=== PATIENT | male | born 1995 | race African-American/Black ===

== ENCOUNTER 2016-10-19 20:07 | Emergency (ER) | payer OTHER ==
[2016-10-19 22:40] LABS: BASO % 0.5 % (0.0-1.0); EOS # 0.1 K/mm3 (0.0-0.50); EOS % 1.7 % (0.0-3.0); LARGE UNSTAINED CELL # 0.1 K/mm3 (0.0-0.4); LARGE UNSTAINED CELL % 1.5 % (0.0-4.0); LYMPH # 2.2 K/mm3 (1.5-6.5); LYMPH % 26.6 % (24.0-44.0); MEAN CORPUSCULAR HEMOGLOBIN 28.6 pg (27.0-33.0); MEAN CORPUSCULAR HGB CONC 33.6 g/dl (32.0-36.5); MEAN CORPUSCULAR VOLUME 85.1 fl (80.0-96.0); MONO # 0.4 K/mm3 (0.0-0.8); MONO % 4.1 % (0.0-5.0); NEUTROPHILS # 5.5 K/mm3 (1.8-7.7); NEUTROPHILS % 65.6 % (36.0-66.0); PLATELET COUNT, AUTOMATED 233 k/mm3 (150-450); RED CELL DISTRIBUTION WIDTH 12.2 % (11.5-14.5); WHITE BLOOD COUNT 8.4 K/mm3 (4.0-10.0)
[2016-10-19 23:02] LABS: ANION GAP 12 MEQ/L (8-16); BLOOD UREA NITROGEN 15 MG/DL (7-18); CALCIUM LEVEL 9.4 MG/DL (8.5-10.1); CARBON DIOXIDE LEVEL 26 MEQ/L (21-32); CHLORIDE LEVEL 104 MEQ/L (98-107); CREATININE FOR GFR 1.17 MG/DL (0.70-1.30); GLOMERULAR FILTRATION RATE > 60.0 (>60); GLUCOSE, FASTING 99 MG/DL (70-105); POTASSIUM SERUM 3.8 MEQ/L (3.5-5.1); SODIUM LEVEL 142 MEQ/L (136-145)
--- NOTE | 2016-10-19 23:35 | EDDOCDS ---
Physician Documentation [facility] Name: Prabhakar Maki Age: 21 yrs Sex: Male : 1995 Arrival Date: 10/19/2016 Time: 20:07 Bed PR [facility] Disposition: 10/19 23:20 Critical Care: Critical care not applicable. le Disposition: 10/19/16 23:19 Discharged to Home/Self Care. Impression: Other chest pain. - Condition is Stable. - Discharge Instructions: Nonspecific Chest Pain, Pain Without a Known Cause. - Prescriptions for Naprosyn 500 mg Oral Tablet - take 1 tablet by ORAL route 2 times per day take with food; 30 tablet. - Medication Reconciliation, Local Pharmacy Hours form. - [facility]; When: Call to arrange an appointment; Reason: Recheck today's complaints, Continuance of care. - Problem is new. - Symptoms are unchanged. - Notes: Return to the ED for any further concerns Historical: - Allergies: No known drug Allergies; bee allergy; - Home Meds: 1. none - PMHx: Heart Murmur; Sciatica; - PSHx: none; - Social history: Smoking status: Patient states was never smoker of tobacco. No barriers to communication noted, The patient speaks fluent Togolese, Speaks appropriately for age. - Family history: Not pertinent. - : The pt / caregiver states he / she is not on anticoagulants. Home medication list is obtained from the patient. - Exposure Risk Screening:: None identified. Vital Signs: 20:09 BP 145 / 88; Pulse 102; Resp 20 S; Temp 98.5(O); Pulse Ox 99% on R/A; Weight 92.99 kg / gr2 205.01 lbs (R); Height 5 ft. 10 in. (177.80 cm) (R); Pain 6/10; 23:32 BP 134 / 88; Pulse 81; Resp 18; Temp 97.6(TE); Pulse Ox 99% on R/A; Pain 0/10; sls1 20:09 Body Mass Index 29.41 (92.99 kg, 177.80 cm) gr2 MDM: 20:19 ECG WITH READING ER PHYS+CARDIAG ordered. EDMS 20:47 [facility] Payment Agreement was scanned into Point and attached to record. [email or web address] 22:18 Chest, 2 View (pa\E\lat) Ordered. EDMS 22:18 CBC with Diff Ordered. EDMS 22:18 BMP Ordered. EDMS 22:18 D-Dimer Quant Ordered. EDMS 22:38 Financial registration complete. gjb 22:49 CBC with Diff Reviewed. le 23:17 BMP Reviewed. le 23:17 D-Dimer Quant Reviewed. le Signatures: Dispatcher [employer] EDEdgardo Irvin, RN RN Angelina Tong, AUTOMATIC TOE LASTER AUTOMATIC TOE LASTER Mireya Sawyer RN RN sls1 Libby Galob Amy Aguilera, Reg Reg ks16 The chart was reviewed and I authenticate all verbal orders and agree with the evaluation and treatment provided.Attachments: 20:47 [facility] Payment Agreement ks16 MTDD
--- NOTE | 2016-10-19 23:35 | EDDOCDS ---
Nurse's Notes [facility] Name: Prabhakar Maki Age: 21 yrs Sex: Male : 1995 Arrival Date: 10/19/2016 Time: 20:07 Bed PR Private MD: [facility] Diagnosis: Other chest pain Presentation: 10/19 20:11 Red Flag criteria, patient assessed and is suitable to finish the RCE Process. sls1 20:14 Presenting complaint: Patient states: has history of a heart murmur pt states has been cz coughing up brown phlegm and today had body trembling. Aspirin was not taken prior to arrival. Adult Sepsis Screening: The patient does not have new or worsening altered mentation. Patient's respiratory rate is less than 22. Systolic blood pressure is greater than 100. Patient has a qSOFA score of 0- Negative Sepsis Screen. Suicide/Homicide risk assessment- the patient denies having any suicidal and/or homicidal ideations and does not present with any other emotional, behavioral or mental health complaints. 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 Transition of care: patient was not received from another setting of care. 20:14 Acuity: MARK Level 3 cz 20:14 Method Of Arrival: Walkin/Carried/Asstd cz Triage Assessment: 20:16 General: Appears distressed. Pain: Location: chest Pain currently is 6 out of 10 on a cz pain scale. HIV screening NA for this visit Offered previously. Historical: - Allergies: No known drug Allergies; bee allergy; - Home Meds: 1. none - PMHx: Heart Murmur; Sciatica; - PSHx: none; - Social history: Smoking status: Patient states was never smoker of tobacco. No barriers to communication noted, The patient speaks fluent Kyrgyz, Speaks appropriately for age. - Family history: Not pertinent. - : The pt / caregiver states he / she is not on anticoagulants. Home medication list is obtained from the patient. - Exposure Risk Screening:: None identified. Screenin:07 Screening information is obtained from the patient. Fall risk: No risks identified. sls1 Assistance ADL's: requires no assistance with activities of daily living. Abuse/DV Screen: The patient / caregiver reports he/she is: not in a situation that causes fear, pain or injury. Nutritional screening: No deficits noted. Advance Directives: Further advance directive information is declined. home support is adequate. Assessment: 22:07 General: Appears in no apparent distress, Behavior is appropriate for age, cooperative. sls1 Pain: Location: anterior aspect of left upper chest, left nipple and left breast Pain currently is 6 out of 10 on a pain scale. Pain radiates to right arm. Neurological: Level of Consciousness is awake, alert. Cardiovascular: Capillary refill < 3 seconds Heart tones S1 S2 present left chest tender to palpation Chest pain is described as Pain is 6 out of 10 on a pain scale. is located in substernal area radiates to right arm(s) began 4 days ago. Respiratory: Airway is patent Respiratory effort is even, unlabored, Respiratory pattern is regular, symmetrical. Derm: No deficits noted. 23:32 Reassessment: Patient appears in no apparent distress at this time. Patient states sls1 feeling better. Discharge instructions reviewed with pt and SO including medication use and follow up care, verbalizes understanding of all instructions, pt d/c home with SO. Neurological: No deficits noted. Respiratory: No deficits noted. Vital Signs: 20:09 BP 145 / 88; Pulse 102; Resp 20 S; Temp 98.5(O); Pulse Ox 99% on R/A; Weight 92.99 kg gr2 (R); Height 5 ft. 10 in. (177.80 cm) (R); Pain 6/10; 23:32 BP 134 / 88; Pulse 81; Resp 18; Temp 97.6(TE); Pulse Ox 99% on R/A; Pain 0/10; sls1 20:09 Body Mass Index 29.41 (92.99 kg, 177.80 cm) gr2 Vitals: 20:09 Log In Time: October 19, 2016 at 20:09. RN notified that patient meets Red Flag gr2 criteria. ED Course: 20:09 Patient visited by Andrew Aparicio. gr2 20:09 [facility] gr2 20:09 Patient moved to Waiting gr2 20:11 Patient visited by Andrew Aparicio. gr2 20:12 Patient moved to Pre RCE gr2 20:15 Triage Initiated cz 20:17 Patient moved to PR2 / 26 cz 20:27 Patient visited by Suleiman Quinones, EMELYN. mdr 20:27 Patient moved to TR4 mdr 20:27 EKG done. (by ED staff). Reviewed by Naveed Mcadams DO. mdr 20:42 Patient moved to Pre RCE sls1 20:47 [facility] Payment Agreement was scanned into [employer] and attached to record. ks16 22:06 Patient moved to Triage 1 sls1 22:09 Angelina Coburn FNP [facility]. le 22:09 Patient visited by Mireya Damon RN. sls1 22:11 Patient visited by Angelina Coburn FNP. le 22:11 Patient visited by Angelina Coburn FNP. le 22:36 Patient moved to Radiology patrick 22:37 Patient moved to Triage 1 patrick 22:37 Patient moved to TR5 mb9 22:37 CBC with Diff Sent. mb9 22:37 BMP Sent. mb9 22:37 D-Dimer Quant Sent. mb9 23:19 [facility]. le 23:20 Patient moved to PR [facility] 23:32 The patient / caregiver is instructed regarding the plan of care and ED course. sls1 Accompanied by Significant Other, Patient has correct armband on for positive identification. Cardiac monitoring not applicable on this patient. 23:32 No IV's were initiated during this patient's visit. No procedures done that require sls1 assistance. Order Results: Lab Order: CBC with Diff; SPEC'M 10/19/16 22:34 Test: WHITE BLOOD COUNT; Value: 8.4; Range: 4.0-10.0; Units: K/mm3; Status: F Test: RED BLOOD COUNT; Value: 5.21; Range: 4.30-6.10; Units: M/mm3; Status: F Test: HEMOGLOBIN; Value: 14.9; Range: 14.0-18.0; Units: g/dl; Status: F Test: HEMATOCRIT; Value: 44.4; Range: 42.0-52.0; Units: %; Status: F Test: MEAN CORPUSCULAR VOLUME; Value: 85.1; Range: 80.0-96.0; Units: fl; Status: F Test: MEAN CORPUSCULAR HEMOGLOBIN; Value: 28.6; Range: 27.0-33.0; Units: pg; Status: F Test: MEAN CORPUSCULAR HGB CONC; Value: 33.6; Range: 32.0-36.5; Units: g/dl; Status: F Test: RED CELL DISTRIBUTION WIDTH; Value: 12.2; Range: 11.5-14.5; Units: %; Status: F Test: PLATELET COUNT, AUTOMATED; Value: 233; Range: 150-450; Units: k/mm3; Status: F Test: NEUTROPHILS %; Value: 65.6; Range: 36.0-66.0; Units: %; Status: F Test: LYMPH %; Value: 26.6; Range: 24.0-44.0; Units: %; Status: F Test: MONO %; Value: 4.1; Range: 0.0-5.0; Units: %; Status: F Test: EOS %; Value: 1.7; Range: 0.0-3.0; Units: %; Status: F Test: BASO %; Value: 0.5; Range: 0.0-1.0; Units: %; Status: F Test: LARGE UNSTAINED CELL %; Value: 1.5; Range: 0.0-4.0; Units: %; Status: F Test: NEUTROPHILS #; Value: 5.5; Range: 1.8-7.7; Units: K/mm3; Status: F Test: LYMPH #; Value: 2.2; Range: 1.5-6.5; Units: K/mm3; Status: F Test: MONO #; Value: 0.4; Range: 0.0-0.8; Units: K/mm3; Status: F Test: EOS #; Value: 0.1; Range: 0.0-0.50; Units: K/mm3; Status: F Test: BASO #; Value: 0.0; Range: 0.0-0.2; Units: K/mm3; Status: F Test: LARGE UNSTAINED CELL #; Value: 0.1; Range: 0.0-0.4; Units: K/mm3; Status: F Lab Order: [facility]; SPEC'M 10/19/16 22:34 Test: GLUCOSE, FASTING; Value: 99; Range: 70-105; Units: MG/DL; Status: F Test: BLOOD UREA NITROGEN; Value: 15; Range: 7-18; Units: MG/DL; Status: F Test: CREATININE FOR GFR; Value: 1.17; Range: 0.70-1.30; Units: MG/DL; Status: F Test: GLOMERULAR FILTRATION RATE; Value: > 60.0; Range: >60; Status: F Test: SODIUM LEVEL; Value: 142; Range: 136-145; Units: MEQ/L; Status: F Test: POTASSIUM SERUM; Value: 3.8; Range: 3.5-5.1; Units: MEQ/L; Status: F Test: CHLORIDE LEVEL; Value: 104; Range: 98-107; Units: MEQ/L; Status: F Test: CARBON DIOXIDE LEVEL; Value: 26; Range: 21-32; Units: MEQ/L; Status: F Test: ANION GAP; Value: 12; Range: 8-16; Units: MEQ/L; Status: F Test: CALCIUM LEVEL; Value: 9.4; Range: 8.5-10.1; Units: MG/DL; Status: F Test Note: ; Units are mL/min/1.73 m2 Chronic Kidney Disease Staging per NKF: Stage I & II GFR >=60 Normal to Mildly Decreased Stage III GFR 30-59 Moderately Decreased Stage IV GFR 15-29 Severely Decreased Stage V GFR <15 Very Little GFR Left ESRD GFR <15 on CREDIT RISK MODELER Lab Order: D-Dimer Quant; SPEC'M 10/19/16 22:34 Test: D-DIMER QUANT; Value: < 270.0; Range: <500; Units: ng/ml; Status: F Outcome: 23:19 Discharge ordered by Provider. le 23:32 Discharge Assessment: Patient awake, alert and oriented x 3. No cognitive and/or [facility] functional deficits noted. Patient verbalized understanding of disposition instructions. patient administered narcotics - no. The following High Risk Discharge criteria are identified: None. Discharged to home ambulatory. Condition: stable. Discharge instructions given to patient, Instructed on discharge instructions, follow up and referral plans. medication usage, Demonstrated understanding of instructions, medications, Pt was receptive of discharge instructions/ teaching. Prescriptions given X 1. No special radiology studies were completed. Property :Personal belongings accompany Pt. 23:34 Patient left the ED. sls1 Signatures: Edgardo Dukes RN RN cz Bartlett, Floyd fab Westcott, Lisa, BLOCK MAKING MACHINE OPERATOR BLOCK MAKING MACHINE OPERATOR Mireya Sawyer RN RN sls1 Andrew Aparicio2 Milton Ya,JAKY RN mb9 Suleiman Quinones, MIDDLEWARE ADMINISTRATOR MIDDLEWARE ADMINISTRATOR mdr Amy Aguilera, Reg Reg ks16 ROMED
--- NOTE | 2016-10-20 07:06 | REP ---
Clinical: Chest pain . Comparison: None . Technique: PA and lateral. Findings: The mediastinum and cardiac silhouette are normal. The lung curry are clear and without acute consolidation, effusion, or pneumothorax. The skeletal structures are intact and normal. Impression: 1. No acute cardiopulmonary process. Signed by Manas Sanchez MD 10/20/2016 06:58 A
--- NOTE | 2016-10-20 08:05 | ECGEPIP ---
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
--- NOTE | 2016-10-22 00:35 | EDDOCDS ---
Physician Documentation [facility] Name: Prabhakar Maki Age: 21 yrs Sex: Male : 1995 Arrival Date: 10/19/2016 Time: 20:07 Bed PR [facility] Disposition: 10/19 23:20 Critical Care: Critical care not applicable. le Disposition: 10/19/16 23:19 Discharged to Home/Self Care. Impression: Other chest pain. - Condition is Stable. - Discharge Instructions: Nonspecific Chest Pain, Pain Without a Known Cause. - Prescriptions for Naprosyn 500 mg Oral Tablet - take 1 tablet by ORAL route 2 times per day take with food; 30 tablet. - Medication Reconciliation, Local Pharmacy Hours form. - [facility]; When: Call to arrange an appointment; Reason: Recheck today's complaints, Continuance of care. - Problem is new. - Symptoms are unchanged. - Notes: Return to the ED for any further concerns Historical: - Allergies: No known drug Allergies; bee allergy; - Home Meds: 1. none - PMHx: Heart Murmur; Sciatica; - PSHx: none; - Social history: Smoking status: Patient states was never smoker of tobacco. No barriers to communication noted, The patient speaks fluent Lithuanian, Speaks appropriately for age. - Family history: Not pertinent. - : The pt / caregiver states he / she is not on anticoagulants. Home medication list is obtained from the patient. - Exposure Risk Screening:: None identified. Vital Signs: 20:09 BP 145 / 88; Pulse 102; Resp 20 S; Temp 98.5(O); Pulse Ox 99% on R/A; Weight 92.99 kg / gr2 205.01 lbs (R); Height 5 ft. 10 in. (177.80 cm) (R); Pain 6/10; 23:32 BP 134 / 88; Pulse 81; Resp 18; Temp 97.6(TE); Pulse Ox 99% on R/A; Pain 0/10; sls1 20:09 Body Mass Index 29.41 (92.99 kg, 177.80 cm) gr2 MDM: 20:19 ECG WITH READING ER PHYS+CARDIAG ordered. EDMS 20:47 [facility] Payment Agreement was scanned into [employer] and attached to record. [email or web address] 22:18 Chest, 2 View (pa\E\lat) Ordered. EDMS 22:18 CBC with Diff Ordered. EDMS 22:18 BMP Ordered. EDMS 22:18 D-Dimer Quant Ordered. EDMS 22:38 Financial registration complete. gjb 22:49 CBC with Diff Reviewed. le 23:17 BMP Reviewed. le 23:17 D-Dimer Quant Reviewed. le 10/20 10:08 T-Sheet-- Draft Copy was scanned into [employer] and attached to record. gb 10:09 ECG/EKG was scanned into [employer] and attached to record. gb Signatures: Dispatcher [employer] EDMS Edgardo Dukes, RN RN Smita Carpio, Reg Reg gb Angelina Coburn, BALLET PROFESSOR BALLET PROFESSOR Mireya Sawyer RN RN sls1 Libby Galo gjb Amy Aguilera, Reg Reg ks16 The chart was reviewed and I authenticate all verbal orders and agree with the evaluation and treatment provided.Attachments: 10/19 20:47 [facility] [place] Payment Agreement [email or web address] 10/20 10:08 T-Sheet-- Draft Copy gb 10:09 ECG/EKG gb Chart Complete MTDD
--- NOTE | 2016-10-22 00:36 | EDDOCDS ---
Physician Documentation [facility] Name: Prabhakar Maki Age: 21 yrs Sex: Male : 1995 Arrival Date: 10/19/2016 Time: 20:07 Bed PR [facility] Disposition: 10/19 23:20 Critical Care: Critical care not applicable. le Disposition: 10/19/16 23:19 Discharged to Home/Self Care. Impression: Other chest pain. - Condition is Stable. - Discharge Instructions: Nonspecific Chest Pain, Pain Without a Known Cause. - Prescriptions for Naprosyn 500 mg Oral Tablet - take 1 tablet by ORAL route 2 times per day take with food; 30 tablet. - Medication Reconciliation, Local Pharmacy Hours form. - [facility]; When: Call to arrange an appointment; Reason: Recheck today's complaints, Continuance of care. - Problem is new. - Symptoms are unchanged. - Notes: Return to the ED for any further concerns Historical: - Allergies: No known drug Allergies; bee allergy; - Home Meds: 1. none - PMHx: Heart Murmur; Sciatica; - PSHx: none; - Social history: Smoking status: Patient states was never smoker of tobacco. No barriers to communication noted, The patient speaks fluent Irish, Speaks appropriately for age. - Family history: Not pertinent. - : The pt / caregiver states he / she is not on anticoagulants. Home medication list is obtained from the patient. - Exposure Risk Screening:: None identified. Vital Signs: 20:09 BP 145 / 88; Pulse 102; Resp 20 S; Temp 98.5(O); Pulse Ox 99% on R/A; Weight 92.99 kg / gr2 205.01 lbs (R); Height 5 ft. 10 in. (177.80 cm) (R); Pain 6/10; 23:32 BP 134 / 88; Pulse 81; Resp 18; Temp 97.6(TE); Pulse Ox 99% on R/A; Pain 0/10; sls1 20:09 Body Mass Index 29.41 (92.99 kg, 177.80 cm) gr2 MDM: 20:19 ECG WITH READING ER PHYS+CARDIAG ordered. EDMS 20:47 [facility] Payment Agreement was scanned into [employer] and attached to record. [email or web address] 22:18 Chest, 2 View (pa\E\lat) Ordered. EDMS 22:18 CBC with Diff Ordered. EDMS 22:18 BMP Ordered. EDMS 22:18 D-Dimer Quant Ordered. EDMS 22:38 Financial registration complete. gjb 22:49 CBC with Diff Reviewed. le 23:17 BMP Reviewed. le 23:17 D-Dimer Quant Reviewed. le 10/20 10:08 T-Sheet-- Draft Copy was scanned into [employer] and attached to record. gb 10:09 ECG/EKG was scanned into [employer] and attached to record. gb Signatures: Dispatcher [employer] EDMS Edgardo Dukes, RN RN Smita Carpio, Reg Reg gb Angelina Coburn, ELECTRIC MOTOR WINDERS ASSEMBLER ELECTRIC MOTOR WINDERS ASSEMBLER Mireya Sawyer RN RN sls1 Libby Galo gjb Aym Aguilera, Reg Reg ks16 The chart was reviewed and I authenticate all verbal orders and agree with the evaluation and treatment provided.Attachments: 10/19 20:47 [facility] [place] Payment Agreement [email or web address] 10/20 10:08 T-Sheet-- Draft Copy gb 10:09 ECG/EKG gb Chart Complete MTDD
--- NOTE | 2016-10-22 00:36 | EDDOCDS ---
Nurse's Notes [facility] Name: Regis Maki Age: 21 yrs Sex: Male : 1995 Arrival Date: 10/19/2016 Time: 20:07 Bed PR Private MD: [facility]ESFA[facility] Diagnosis: Other chest pain Presentation: 10/19 20:11 Red Flag criteria, patient assessed and is suitable to finish the RCE Process. sls1 20:14 Presenting complaint: Patient states: has history of a heart murmur pt states has been cz coughing up brown phlegm and today had body trembling. Aspirin was not taken prior to arrival. Adult Sepsis Screening: The patient does not have new or worsening altered mentation. Patient's respiratory rate is less than 22. Systolic blood pressure is greater than 100. Patient has a qSOFA score of 0- Negative Sepsis Screen. Suicide/Homicide risk assessment- the patient denies having any suicidal and/or homicidal ideations and does not present with any other emotional, behavioral or mental health complaints. 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 Transition of care: patient was not received from another setting of care. 20:14 Acuity: MARK Level 3 cz 20:14 Method Of Arrival: Walkin/Carried/Asstd cz Triage Assessment: 20:16 General: Appears distressed. Pain: Location: chest Pain currently is 6 out of 10 on a cz pain scale. HIV screening NA for this visit Offered previously. Historical: - Allergies: No known drug Allergies; bee allergy; - Home Meds: 1. none - PMHx: Heart Murmur; Sciatica; - PSHx: none; - Social history: Smoking status: Patient states was never smoker of tobacco. No barriers to communication noted, The patient speaks fluent Australian, Speaks appropriately for age. - Family history: Not pertinent. - : The pt / caregiver states he / she is not on anticoagulants. Home medication list is obtained from the patient. - Exposure Risk Screening:: None identified. Screenin:07 Screening information is obtained from the patient. Fall risk: No risks identified. sls1 Assistance ADL's: requires no assistance with activities of daily living. Abuse/DV Screen: The patient / caregiver reports he/she is: not in a situation that causes fear, pain or injury. Nutritional screening: No deficits noted. Advance Directives: Further advance directive information is declined. home support is adequate. Assessment: 22:07 General: Appears in no apparent distress, Behavior is appropriate for age, cooperative. sls1 Pain: Location: anterior aspect of left upper chest, left nipple and left breast Pain currently is 6 out of 10 on a pain scale. Pain radiates to right arm. Neurological: Level of Consciousness is awake, alert. Cardiovascular: Capillary refill < 3 seconds Heart tones S1 S2 present left chest tender to palpation Chest pain is described as Pain is 6 out of 10 on a pain scale. is located in substernal area radiates to right arm(s) began 4 days ago. Respiratory: Airway is patent Respiratory effort is even, unlabored, Respiratory pattern is regular, symmetrical. Derm: No deficits noted. 23:32 Reassessment: Patient appears in no apparent distress at this time. Patient states sls1 feeling better. Discharge instructions reviewed with pt and SO including medication use and follow up care, verbalizes understanding of all instructions, pt d/c home with SO. Neurological: No deficits noted. Respiratory: No deficits noted. Vital Signs: 20:09 BP 145 / 88; Pulse 102; Resp 20 S; Temp 98.5(O); Pulse Ox 99% on R/A; Weight 92.99 kg gr2 (R); Height 5 ft. 10 in. (177.80 cm) (R); Pain 6/10; 23:32 BP 134 / 88; Pulse 81; Resp 18; Temp 97.6(TE); Pulse Ox 99% on R/A; Pain 0/10; sls1 20:09 Body Mass Index 29.41 (92.99 kg, 177.80 cm) gr2 Vitals: 20:09 Log In Time: October 19, 2016 at 20:09. RN notified that patient meets Red Flag gr2 criteria. ED Course: 20:09 Patient visited by Andrew Aparicio. gr2 20:09 [facility]. gr2 20:09 Patient moved to Waiting gr2 20:11 Patient visited by Andrew Aparicio. gr2 20:12 Patient moved to Pre RCE gr2 20:15 Triage Initiated cz 20:17 Patient moved to PR2 / 26 cz 20:27 Patient visited by Suleiman Quinones, EMELYN. mdr 20:27 Patient moved to TR4 mdr 20:27 EKG done. (by ED staff). Reviewed by Vicki Mcadams DO. mdr 20:42 Patient moved to Pre RCE sls1 20:47 [facility] [place] Payment Agreement was scanned into [employer] and attached to record. ks16 22:06 Patient moved to Triage 1 sls1 22:09 Angelina Coburn FNP is PHCP. le 22:09 Patient visited by Mireya Damon, JAKY. sls1 22:11 Patient visited by Angelina Coburn FNP. le 22:11 Patient visited by Angelina Coburn FNP. le 22:36 Patient moved to Radiology patrick 22:37 Patient moved to Triage 1 patrick 22:37 Patient moved to TR5 mb9 22:37 CBC with Diff Sent. mb9 22:37 BMP Sent. mb9 22:37 D-Dimer Quant Sent. mb9 23:19 [facility] Referral Physician. le 23:20 Patient moved to PR / sls1 23:32 The patient / caregiver is instructed regarding the plan of care and ED course. sls1 Accompanied by Significant Other, Patient has correct armband on for positive identification. Cardiac monitoring not applicable on this patient. 23:32 No IV's were initiated during this patient's visit. No procedures done that require sls1 assistance. 10/20 07:41 Chest, 2 View (pa\E\lat) Returned. EDMS 08:22 EKG-ADULT Returned. EDMS 10:08 T-Sheet-- Draft Copy was scanned into [employer] and attached to record. gb 10:09 ECG/EKG was scanned into [employer] and attached to record. gb Order Results: Lab Order: CBC with Diff; SPEC'M 10/19/16 22:34 Test: WHITE BLOOD COUNT; Value: 8.4; Range: 4.0-10.0; Units: K/mm3; Status: F Test: RED BLOOD COUNT; Value: 5.21; Range: 4.30-6.10; Units: M/mm3; Status: F Test: HEMOGLOBIN; Value: 14.9; Range: 14.0-18.0; Units: g/dl; Status: F Test: HEMATOCRIT; Value: 44.4; Range: 42.0-52.0; Units: %; Status: F Test: MEAN CORPUSCULAR VOLUME; Value: 85.1; Range: 80.0-96.0; Units: fl; Status: F Test: MEAN CORPUSCULAR HEMOGLOBIN; Value: 28.6; Range: 27.0-33.0; Units: pg; Status: F Test: MEAN CORPUSCULAR HGB CONC; Value: 33.6; Range: 32.0-36.5; Units: g/dl; Status: F Test: RED CELL DISTRIBUTION WIDTH; Value: 12.2; Range: 11.5-14.5; Units: %; Status: F Test: PLATELET COUNT, AUTOMATED; Value: 233; Range: 150-450; Units: k/mm3; Status: F Test: NEUTROPHILS %; Value: 65.6; Range: 36.0-66.0; Units: %; Status: F Test: LYMPH %; Value: 26.6; Range: 24.0-44.0; Units: %; Status: F Test: MONO %; Value: 4.1; Range: 0.0-5.0; Units: %; Status: F Test: EOS %; Value: 1.7; Range: 0.0-3.0; Units: %; Status: F Test: BASO %; Value: 0.5; Range: 0.0-1.0; Units: %; Status: F Test: LARGE UNSTAINED CELL %; Value: 1.5; Range: 0.0-4.0; Units: %; Status: F Test: NEUTROPHILS #; Value: 5.5; Range: 1.8-7.7; Units: K/mm3; Status: F Test: LYMPH #; Value: 2.2; Range: 1.5-6.5; Units: K/mm3; Status: F Test: MONO #; Value: 0.4; Range: 0.0-0.8; Units: K/mm3; Status: F Test: EOS #; Value: 0.1; Range: 0.0-0.50; Units: K/mm3; Status: F Test: BASO #; Value: 0.0; Range: 0.0-0.2; Units: K/mm3; Status: F Test: LARGE UNSTAINED CELL #; Value: 0.1; Range: 0.0-0.4; Units: K/mm3; Status: F Lab Order: BMP; SPEC'M 10/19/16 22:34 Test: GLUCOSE, FASTING; Value: 99; Range: 70-105; Units: MG/DL; Status: F Test: BLOOD UREA NITROGEN; Value: 15; Range: 7-18; Units: MG/DL; Status: F Test: CREATININE FOR GFR; Value: 1.17; Range: 0.70-1.30; Units: MG/DL; Status: F Test: GLOMERULAR FILTRATION RATE; Value: > 60.0; Range: >60; Status: F Test: SODIUM LEVEL; Value: 142; Range: 136-145; Units: MEQ/L; Status: F Test: POTASSIUM SERUM; Value: 3.8; Range: 3.5-5.1; Units: MEQ/L; Status: F Test: CHLORIDE LEVEL; Value: 104; Range: 98-107; Units: MEQ/L; Status: F Test: CARBON DIOXIDE LEVEL; Value: 26; Range: 21-32; Units: MEQ/L; Status: F Test: ANION GAP; Value: 12; Range: 8-16; Units: MEQ/L; Status: F Test: CALCIUM LEVEL; Value: 9.4; Range: 8.5-10.1; Units: MG/DL; Status: F Test Note: ; Units are mL/min/1.73 m2 Chronic Kidney Disease Staging per NKF: Stage I & II GFR >=60 Normal to Mildly Decreased Stage III GFR 30-59 Moderately Decreased Stage IV GFR 15-29 Severely Decreased Stage V GFR <15 Very Little GFR Left ESRD GFR <15 on CREDIT AND COLLECTIONS ANALYST Lab Order: D-Dimer Quant; SPEC'M 10/19/16 22:34 Test: D-DIMER QUANT; Value: < 270.0; Range: <500; Units: ng/ml; Status: F Radiology Order: EKG-ADULT Test: EKG-ADULT REASON FOR EXAMINATION: Chest Pain; Stationary ECG Study; [facility] - ED; ; Test Date: 2016-10-19; Pat Name: REGIS MAKI Department:; Room: -; 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; : 1995 Requested By: VICKI Bell; Order Number: [id number] Ambrose MD: Kiara Barlow; Measurements; Intervals [place]; Rate: 70 P: 61; IL: 152 QRS: 36; QRSD: 101 T: 28; QT: 371; QTc: 401; Interpretive Statements; SINUS RHYTHM; POSSIBLE RIGHT VENTRICULAR CONDUCTION DELAY; NO PRIOR FOR COMPARISON; Electronically Signed On 10-20-2016 8:05:23 EST by Kiara Barlow; Radiology Order: Chest, 2 View (pa\E\lat) Test: Chest, 2 View (pa\E\lat) REASON FOR EXAMINATION: Chest Pain; Clinical: Chest pain .; ; Comparison: None .; ; Technique: PA and lateral.; ; Findings:; The mediastinum and cardiac silhouette are normal. The lung curry are clear and; without acute consolidation, effusion, or pneumothorax. The skeletal structures; are intact and normal.; ; Impression:; 1. No acute cardiopulmonary process.; ; ; Signed by; Manas Sanchez MD 10/20/2016 06:58 A; Outcome: 10/19 23:19 Discharge ordered by Provider. le 23:32 Discharge Assessment: Patient awake, alert and oriented x 3. No cognitive and/or sls1 functional deficits noted. Patient verbalized understanding of disposition instructions. patient administered narcotics - no. The following High Risk Discharge criteria are identified: None. Discharged to home ambulatory. Condition: stable. Discharge instructions given to patient, Instructed on discharge instructions, follow up and referral plans. medication usage, Demonstrated understanding of instructions, medications, Pt was receptive of discharge instructions/ teaching. Prescriptions given X 1. No special radiology studies were completed. Property :Personal belongings accompany Pt. 23:34 Patient left the ED. sls1 Signatures: Dispatcher [employer] EDMS Edgardo uDkes RN RN Arnie Finnegan Gloria, Reg Reg gb Angelina Coburn, BUSINESS PROCESS COORDINATOR BUSINESS PROCESS COORDINATOR Mireya Sawyer RN RN sls1 Andrew Aparicio gr2 Milton Ya RN RN Suleiman Lowry, EMELYN FINISH MACHINE TENDER Amy Silveira, Reg Reg ks16 Chart Complete MTDD
== END 2016-10-19 23:34 | disposition home or self-care (01) ==
LOC: M ED 20:07
DX: R05 Cough (principal); R01.1 Cardiac murmur, unspecified; M54.30 Sciatica, unspecified side; Z91.030 Bee allergy status

== ENCOUNTER 2016-10-21 13:05 | Emergency (ER) | payer OTHER ==
[2016-10-21 13:57] LABS: MEAN CORPUSCULAR HEMOGLOBIN 28.8 pg (27.0-33.0); MEAN CORPUSCULAR VOLUME 84.6 fl (80.0-96.0); RED CELL DISTRIBUTION WIDTH 12.2 % (11.5-14.5); WHITE BLOOD COUNT 6.8 K/mm3 (4.0-10.0)
--- NOTE | 2016-10-21 14:03 | REP ---
CT Head without contrast HISTORY: Trauma COMPARISON: None There is no intraparenchymal hemorrhage, acute infarct, mass or midline shift. The ventricular system is normal in appearance. There is no extra cerebral collection. There is no fracture. The visualized sinuses are clear. IMPRESSION: There is no intracranial lesion. Signed by Arnaldo Vyas MD 10/21/2016 01:54 P
--- NOTE | 2016-10-21 14:07 | REP ---
CT cervical spine without contrast HISTORY: Trauma COMPARISON: None There is no acute fracture or subluxation. There is no disc bulge or herniation. The spinal canal and neural foramina are patent. The intervertebral discs and vertebral bodies are normal in height. IMPRESSION: There is no acute fracture or subluxation. Signed by Arnaldo Vyas MD 10/21/2016 01:59 P
[2016-10-21] MEDS ORDERED: KETOROLAC 30 MG/ML VIAL (J1885) As Ordered ONE (14:10)
[2016-10-21 14:13] LABS: ALBUMIN 4.4 GM/DL (3.2-5.2); ALBUMIN/GLOBULIN RATIO 1.13 (1.00-1.93); ALKALINE PHOSPHATASE 72 U/L (45-117); ALT/SGPT 28 U/L (12-78); ANION GAP 9 MEQ/L (8-16); AST/SGOT 17 U/L (15-37); BILIRUBIN,DIRECT 0.2 MG/DL (0.0-0.2); BILIRUBIN,TOTAL 1.1 MG/DL (0.2-1.0); BLOOD UREA NITROGEN 16 MG/DL (7-18); CALCIUM LEVEL 9.3 MG/DL (8.5-10.1); CARBON DIOXIDE LEVEL 28 MEQ/L (21-32); CHLORIDE LEVEL 105 MEQ/L (98-107); CREATININE FOR GFR 1.28 MG/DL (0.70-1.30); GLOMERULAR FILTRATION RATE > 60.0 (>60); GLUCOSE, FASTING 86 MG/DL (70-105); POTASSIUM SERUM 3.7 MEQ/L (3.5-5.1); SODIUM LEVEL 142 MEQ/L (136-145); TOTAL PROTEIN 8.3 GM/DL (6.4-8.2)
--- NOTE | 2016-10-21 15:40 | REP ---
T-spine series: Three views. History: Trauma. Findings: Thoracic vertebral body heights are preserved and alignment is normal. Pedicles and posterior elements are intact. No paravertebral soft-tissue mass or edema is seen. No fracture or collapse seen. Impression: Negative thoracic spine series. Signed by Reji Ybarra MD 10/21/2016 04:20 P
--- NOTE | 2016-10-21 15:41 | REP ---
Lumbar spine series: Five views. History: Trauma. Findings: Five views of the lumbar spine show preserved vertebral body heights and normal alignment. No fracture or collapse is seen. Pedicles and posterior elements are intact. Sacrum and SI joints are normal in appearance. Multiple air-filled but nondilated small bowel loops are seen in the central abdomen. Psoas margins are obscured. Impression: No traumatic bony abnormality seen. Signed by Reji Ybarra MD 10/21/2016 04:20 P
[2016-10-21 16:08] LABS: AMPHETAMINES LEVEL URINE NEGATIVE (NEGATIVE); BENZODIAZEPINES URINE NEGATIVE (NEGATIVE); COCAINE METABOLITE URINE NEGATIVE (NEGATIVE); CONTROL LINE INT CTR LINE PRESENT; METHADONE URINE NEGATIVE (NEGATIVE); OPIATES URINE NEGATIVE (NEGATIVE); TRICYCLIC ANTIDEPRESS URINE NEGATIVE (NEGATIVE)
[2016-10-21] MEDS ORDERED: NORCO, ANEXSIA 5/325MG TABLET (HYDROcodone/ACETAMINOPHEN) As Ordered ONE (16:35)
--- NOTE | 2016-10-21 18:50 | EDDOCDS ---
Nurse's Notes [facility] Name: Prabhakar Maki Age: 21 yrs Sex: Male : 1995 Arrival Date: 10/21/2016 Time: 13:05 Bed 3 Private MD: Diagnosis: Injury of muscle, fascia and tendon at neck level;Low back pain-and thoracic back pain S/P fall Presentation: 10/21 13:08 Presenting complaint: EMS states: patient fell down about 8 steps. Patient refusing to kcs talk but will answer questions by blinking 1 for yes and 2 blinks for no. Unwitnessed fall. Suicide/Homicide risk assessment- the patient denies having any suicidal and/or homicidal ideations and does not present with any other emotional, behavioral or mental health complaints. Status: Unknown if room service bellhop or dependent. Transition of care: patient was not received from another setting of care. Care prior to arrival: See EMS report. C collar in place. Placed on backboard. 13:08 Method Of Arrival: Ambulance kcs 13:23 Adult Sepsis Screening: Patient's respiratory rate is less than 22. Systolic blood ms18 pressure is greater than 100. Patient has a qSOFA score of 0- Negative Sepsis Screen. 13:23 Acuity: MARK Level 3 ms18 Triage Assessment: 13:08 General: Appears comfortable, well developed, well nourished, well groomed, Behavior is kcs uncooperative. The patient is triaged at the bedside. See Assessment in Nurses Notes section of ED record. Neurological: Level of Consciousness is awake, alert. Respiratory: Airway is patent Respiratory effort is even, unlabored, Respiratory pattern is regular. Derm: Skin is intact, is healthy with good turgor, Skin is dry, Skin is black. 13:14 Pain: Location: right arm. HIV screening NA for this visit Offered previously. kcs Historical: - Allergies: bee allergy; - Home Meds: 1. none - PMHx: Heart Murmur; Sciatica; - PSHx: none; - Social history: refuses to communicate verbally. Smoking status: . - Family history: Not pertinent. - : The pt / caregiver states he / she is not on anticoagulants. Home medication list is obtained from [employer] import data. - Exposure Risk Screening:: None identified. Screenin:34 Screening information is obtained from the patient. Fall risk: At risk due to injury. ms18 Assistance ADL's: requires no assistance with activities of daily living. Nutritional screening: No deficits noted. Advance Directives: There is no living will. 18:49 Abuse/DV Screen: The patient / caregiver reports he/she is: not in a situation that rs3 causes fear, pain or injury. home support is adequate. Assessment: 13:17 General: patient log rolled maintaining neck stabilization - back examined by MD and kcs backboard removed - [place] collar remains intact.. 13:34 General: Appears in no apparent distress, uncomfortable, Behavior is cooperative, ms18 inappropriate for age, Pt not speaking at this time. Pt is communicating by blinking once for yes and two for no. Pain: Location: right arm. Neurological: Level of Consciousness is awake, alert, obeys commands. Cardiovascular: Rhythm is sinus rhythm. Respiratory: Airway is patent Respiratory effort is even, unlabored. Derm: Skin is normal, pt has some superficial scratches to the inside of his L forearm. There are several lateral georges that appear to be self inflicted. Pt still won't speak to staff. Musculoskeletal: Circulation, motion, and sensation intact Capillary refill < 3 seconds No deformity noted. 14:05 Reassessment: out to desk and states patient is asking for something for pain.. kcs 14:06 General: Langlade collar removed by Dr. Montgomery. . kcs 14:19 Reassessment: blankets applied - patient noted to be shaking.. kcs 15:30 General: Appears in no apparent distress, Behavior is appropriate for age, cooperative, rs3 resting comfortable. family at bedside. no apparent distress. vitals stable. reports of back pain 07/12. attending provider aware. ordered med given. 16:30 General: Appears in no apparent distress, Behavior is appropriate for age, patient rs3 reports of back pain. assisted with walking. slow unsteady limited by pain. attending provider made aware. . 17:39 General: Appears in no apparent distress, Behavior is appropriate for age, cooperative, rs3 resting comfortable. family at bedside. reports of back pain. will continue to monitor. . 18:25 General: Appears in no apparent distress, resting comfortable. sleeping. vital stable. rs3 no distress noted. . Social Work Consult: 16:40 Social Work Note: Pt presented for c/o fall on stairs today. States he feels tired and ca sleepy. Initially refusing to speak with anyone except , who is at bedside. Pt does have hx of anxiety and is seen bi-weekly at [facility], [place]. Pt is cooperative, A&O x 4. States he has no concerns. Denies any SI or HI. Per , no concerns. Pt wishes to be discharged to home. Vital Signs: 13:15 BP 140 / 92; Pulse 85; Resp 18; Temp 99.4(TE); Pulse Ox 99% on R/A; kcs 13:15 BP 140 / 92 (auto/); kcs 13:17 Pulse 83 MON; Pulse Ox 99% ; kcs 13:30 BP 145 / 95 (auto/); kcs 13:30 Pulse 97 MON; Pulse Ox 98% ; kcs 13:45 BP 135 / 73 (auto/); kcs 13:46 Pulse 75 MON; Pulse Ox 100% ; kcs 14:00 BP 144 / 76 (auto/); kcs 14:00 Pulse 78 MON; Pulse Ox 99% ; kcs 15:56 Pulse 74 MON; Pulse Ox 98% ; rs3 15:57 BP 131 / 84 (auto/); rs3 16:00 BP 134 / 80 (auto/); rs3 16:00 Pulse 74 MON; Pulse Ox 98% ; rs3 16:08 Weight 92.99 kg; jlf 16:15 BP 138 / 82 (auto/); rs3 16:15 Pulse 73 MON; Pulse Ox 99% ; rs3 16:30 BP 129 / 76 (auto/); rs3 16:30 Pulse 72 MON; Pulse Ox 99% ; rs3 16:45 BP 159 / 70 (auto/); rs3 16:45 Pulse 79 MON; Pulse Ox 99% ; rs3 16:57 Pulse 82 MON; Pulse Ox 96% ; rs3 17:03 BP 175 / 86 (auto/); rs3 17:05 BP 175 / 86; Pulse 87; Resp 20; Pulse Ox 97% ; Pain 8/10; jlf 17:15 BP 183 / 86 (auto/); rs3 17:15 Pulse 78 MON; Pulse Ox 98% ; rs3 17:30 BP 180 / 90 (auto/); rs3 17:30 Pulse 75 MON; Pulse Ox 98% ; rs3 18:00 BP 162 / 83 (auto/); rs3 18:00 Pulse 85 MON; Pulse Ox 97% ; rs3 18:15 BP 173 / 93 (auto/); rs3 18:15 Pulse 84 MON; Pulse Ox 99% ; rs3 18:30 BP 168 / 91 (auto/); rs3 18:30 BP 168 / 91; Pulse 74 MON; Resp 18; Temp 98(T); Pulse Ox 98% on R/A; rs3 Vitals: 13:15 Log In Time N/A - ambulance arrival. kcs ED Course: 13:07 Patient visited by Anaya Ferrer, Hand I Tube Bender. deg 13:07 Patient moved to Waiting deg 13:08 Grtea Chavez RN is Primary Nurse. kcs 13:08 Patient moved to 3 kcs 13:14 Kiara Barlow MD is Attending Physician. sd1 13:14 Patient visited by Kiara Barlow MD. sd1 13:23 Patient visited by Gunjan Chavez RN. ms18 13:24 Triage Initiated ms18 13:30 Inserted saline lock: 18 gauge in left antecubital area and blood collected. The ms18 patient tolerated the procedure well. 13:34 The patient / caregiver is instructed regarding the plan of care and ED course. ms18 Accompanied by Family Member, Patient has correct armband on for positive identification. Placed in gown. Bed in low position. Call light in reach. Side rails up X2. cartridge assembling machine adjuster on. Pulse ox on. NIBP on. Property :Personal belongings accompany Pt. 14:17 Patient visited by Gunjan Chavez RN. ms18 14:33 CT Head Without Contrast Returned. EDMS 14:33 CT Spine,Cervical W/o Contrast Returned. EDMS 14:53 Patient visited by Negro Dennis PCA. jlf 15:17 [facility] Payment Agreement was scanned into [employer] and attached to record. jp5 15:39 Patient visited by Nia Mcmanus RN. rs3 15:43 Nia Mcmanus RN is Primary Nurse. rs3 16:09 Patient visited by Negro Dennis PCA. jlf 16:20 Spine, Thoracic 3 Views Returned. EDMS 16:20 Spine. Lumbosacral, Complete Returned. EDMS 16:29 EKG done. (by ED staff). Reviewed by Kiara Barlow MD. rn1 17:05 Patient visited by Negro Dennis PCA. jlf 17:06 Notified attending ED physician of ambulated pt per order, pt did not tolerate jlf well. Pt needed two assist, and would not keep eyes open, he kept bending over saying he was in pain. Pt took four steps from the stretcher and couldn't tolerate anymore. Dr. Montgomery aware. 17:35 Patient visited by Negro Dennis PCA. jlf 18:10 Patient visited by Nia Mcmanus RN. rs3 18:28 Kortney Villanueva [facility] is Referral Physician. sd1 18:49 Discontinued lock bleeding controlled, pressure dressing applied, No redness/swelling rs3 at site. No procedures done that require assistance. Administered Medications: 14:15 Drug: ketorolac 30 mg [ketorolac 30 mg/mL (1 mL) injection solution (1 mL)] {Note: SL kcs with good blood return and flushed easily.} Route: IVP; Site: left antecubital; 16:07 Follow up: Response: No significant change. rs3 16:38 Drug: HYDROcodone-acetaminophen 1 tabs [hydrocodone 5 mg-acetaminophen 325 mg tablet (1 rs3 tabs)] Route: PO; 17:30 Follow up: Response: Pain is decreased rs3 Order Results: Lab Order: Urine Toxicology; SPEC'M 10/21/16 15:41 Test: AMPHETAMINES LEVEL URINE; Value: NEGATIVE; Range: NEGATIVE; Status: F Test: BARBITURATES URINE; Value: NEGATIVE; Range: NEGATIVE; Status: F Test: BENZODIAZEPINES URINE; Value: NEGATIVE; Range: NEGATIVE; Status: F Test: CANNABINOIDS URINE; Value: NEGATIVE; Range: NEGATIVE; Status: F Test: COCAINE METABOLITE URINE; Value: NEGATIVE; Range: NEGATIVE; Status: F Test: METHADONE URINE; Value: NEGATIVE; Range: NEGATIVE; Status: F Test: OPIATES URINE; Value: NEGATIVE; Range: NEGATIVE; Status: F Test: TRICYCLIC ANTIDEPRESS URINE; Value: NEGATIVE; Range: NEGATIVE; Status: F Test Note: ; ALL PRESUMPTIVE POSITIVE FINDINGS ARE UNCONFIRMED NORMAL VALUES THRESHOLD IN NG/ML AMPHETAMINES 1000 METHAMPHETAMINES 1000 BARBITURATES 300 BENZODIAZEPINES 300 CANNABINOIDS (THC) 50 COCAINE METABOLITE 300 METHADONE 300 OPIATES 300 PHENCYCLIDINE 25 TRICYCLIC ANTIDEPRESSANTS 1000 RESULTS ARE FOR MEDICAL PURPOSES ONLY. ALL URINE SPECIMENS WILL BE SAVED FOR 3 DAYS. IF CONFIRMATION OF A PRESUMPTIVE POSTIVE SCREEN RESULT IS DESIRED, CALL CHEMISTRY ([phone]) AND REQUEST URINE TO BE SENT TO REFERENCE LAB. FOR A LIST OF CLOSELY RELATED COMPOUNDS PLEASE CALL THE LAB. Lab Order: Acetaminophen Level; SPEC'M 10/21/16 13:31 Test: ACETAMINOPHEN LEVEL; Value: < 2.0; Range: 10.0-30.0; Abnormal: Below low normal; Units: UG/ML; Status: F Lab Order: Basic Metabolic Profile; SPEC'M 10/21/16 13:31 Test: GLUCOSE, FASTING; Value: 86; Range: 70-105; Units: MG/DL; Status: F Test: BLOOD UREA NITROGEN; Value: 16; Range: 7-18; Units: MG/DL; Status: F Test: CREATININE FOR GFR; Value: 1.28; Range: 0.70-1.30; Units: MG/DL; Status: F Test: GLOMERULAR FILTRATION RATE; Value: > 60.0; Range: >60; Status: F Test: SODIUM LEVEL; Value: 142; Range: 136-145; Units: MEQ/L; Status: F Test: POTASSIUM SERUM; Value: 3.7; Range: 3.5-5.1; Units: MEQ/L; Status: F Test: CHLORIDE LEVEL; Value: 105; Range: 98-107; Units: MEQ/L; Status: F Test: CARBON DIOXIDE LEVEL; Value: 28; Range: 21-32; Units: MEQ/L; Status: F Test: ANION GAP; Value: 9; Range: 8-16; Units: MEQ/L; Status: F Test: CALCIUM LEVEL; Value: 9.3; Range: 8.5-10.1; Units: MG/DL; Status: F Test Note: ; Units are mL/min/1.73 m2 Chronic Kidney Disease Staging per NKF: Stage I & II GFR >=60 Normal to Mildly Decreased Stage III GFR 30-59 Moderately Decreased Stage IV GFR 15-29 Severely Decreased Stage V GFR <15 Very Little GFR Left ESRD GFR <15 on CONTACT PERSON Lab Order: Complete Blood Count; SPEC'M 10/21/16 13:31 Test: WHITE BLOOD COUNT; Value: 6.8; Range: 4.0-10.0; Units: K/mm3; Status: F Test: RED BLOOD COUNT; Value: 5.19; Range: 4.30-6.10; Units: M/mm3; Status: F Test: HEMOGLOBIN; Value: 14.9; Range: 14.0-18.0; Units: g/dl; Status: F Test: HEMATOCRIT; Value: 43.9; Range: 42.0-52.0; Units: %; Status: F Test: MEAN CORPUSCULAR VOLUME; Value: 84.6; Range: 80.0-96.0; Units: fl; Status: F Test: MEAN CORPUSCULAR HEMOGLOBIN; Value: 28.8; Range: 27.0-33.0; Units: pg; Status: F Test: MEAN CORPUSCULAR HGB CONC; Value: 34.0; Range: 32.0-36.5; Units: g/dl; Status: F Test: RED CELL DISTRIBUTION WIDTH; Value: 12.2; Range: 11.5-14.5; Units: %; Status: F Test: PLATELET COUNT, AUTOMATED; Value: 239; Range: 150-450; Units: k/mm3; Status: F Lab Order: Ethyl Alcohol (ethanol); SPEC'M 10/21/16 13:31 Test: ETHYL ALCOHOL (ETHANOL); Value: < 0.003; Range: 0.000-0.010; Units: %; Status: F Lab Order: Liver Profile; SPEC'10/21/16 13:31 Test: AST/SGOT; Value: 17; Range: 15-37; Units: U/L; Status: F Test: ALT/SGPT; Value: 28; Range: 12-78; Units: U/L; Status: F Test: ALKALINE PHOSPHATASE; Value: 72; Range: 45-117; Units: U/L; Status: F Test: BILIRUBIN,TOTAL; Value: 1.1; Range: 0.2-1.0; Abnormal: Above high normal; Units: MG/DL; Status: F Test: BILIRUBIN,DIRECT; Value: 0.2; Range: 0.0-0.2; Units: MG/DL; Status: F Test: TOTAL PROTEIN; Value: 8.3; Range: 6.4-8.2; Abnormal: Above high normal; Units: GM/DL; Status: F Test: ALBUMIN; Value: 4.4; Range: 3.2-5.2; Units: GM/DL; Status: F Test: ALBUMIN/GLOBULIN RATIO; Value: 1.13; Range: 1.00-1.93; Status: F Lab Order: Salicylate Level; SPEC'M 10/21/16 13:31 Test: SALICYLATE LEVEL; Value: < 1.7; Range: 5.0-30.0; Abnormal: Below low normal; Units: MG/DL; Status: F Lab Order: Thyroid Stimulating Hormone; SPEC'M 10/21/16 13:31 Test: THYROID STIMULATING HORMONE; Value: 1.540; Range: 0.358-3.740; Units: uIU/ML; Status: F Radiology Order: CT Head Without Contrast Test: CT Head Without Contrast REASON FOR EXAMINATION: Trauma; CT Head without contrast; ; HISTORY: Trauma; ; COMPARISON: None; ; There is no intraparenchymal hemorrhage, acute infarct, mass or midline shift.; The ventricular system is normal in appearance. There is no extra cerebral; collection. There is no fracture. The visualized sinuses are clear.; ; IMPRESSION: There is no intracranial lesion.; ; ; ; ; Signed by; Arnaldo Vyas MD 10/21/2016 01:54 P; Radiology Order: CT Spine,Cervical W/o Contrast Test: CT Spine,Cervical W/o Contrast REASON FOR EXAMINATION: Trauma; CT cervical spine without contrast; ; HISTORY: Trauma; ; COMPARISON: None; ; There is no acute fracture or subluxation. There is no disc bulge or herniation.; The spinal canal and neural foramina are patent. The intervertebral discs and; vertebral bodies are normal in height.; ; IMPRESSION: There is no acute fracture or subluxation.; ; ; Signed by; Arnaldo Vyas MD 10/21/2016 01:59 P; Radiology Order: Spine. Lumbosacral, Complete Test: Spine. Lumbosacral, Complete REASON FOR EXAMINATION: Trauma; Lumbar spine series: Five views.; ; History: Trauma.; ; Findings: Five views of the lumbar spine show preserved vertebral body heights; and normal alignment. No fracture or collapse is seen. Pedicles and posterior; elements are intact. Sacrum and SI joints are normal in appearance. Multiple; air-filled but nondilated small bowel loops are seen in the central abdomen.; Psoas margins are obscured.; ; Impression:; ; No traumatic bony abnormality seen.; ; ; Signed by; Reji Ybarra MD 10/21/2016 04:20 P; Radiology Order: Spine, Thoracic 3 Views Test: Spine, Thoracic 3 Views REASON FOR EXAMINATION: Trauma; T-spine series: Three views.; ; History: Trauma.; ; Findings: Thoracic vertebral body heights are preserved and alignment is normal.; Pedicles and posterior elements are intact. No paravertebral soft-tissue mass or; edema is seen. No fracture or collapse seen.; ; Impression:; ; Negative thoracic spine series.; ; ; Signed by; Reji Ybarra MD 10/21/2016 04:20 P; Outcome: 18:28 Discharge ordered by Provider. sd1 18:43 Discharge Assessment: patient administered narcotics - yes. Pt provided with safe rs3 discharge. The following High Risk Discharge criteria are identified: None. Discharged to home ambulatory, with family. Condition: stable. Discharge instructions given to patient, family, Instructed on discharge instructions, follow up and referral plans. medication usage, Demonstrated understanding of instructions, medications, Pt was receptive of discharge instructions/ teaching. Prescriptions given X 1. CT Study completed. 18:50 Patient left the ED. rs3 Signatures: Dispatcher [employer] EDMS Kiara Barlow MD MD sd1 Divya Combs, RN RN Anaya Ferris, Hand I Tube Bender Unit deg Mariaa Lemon, PSA PSA Nia LeeRN RN rs3 Negro Dennis, EMELYN [employer]PERATION Gunjan Villeda RN RN ms18 Prabhakar Flowers rn1 Pee Vences jp5 Corrections: (The following items were deleted from the chart) 13:19 13:15 BP 140 / 92; Pulse 85bpm; Resp 18bpm; Pulse Ox 99% RA; sabine regalado 13:39 13:30 Inserted saline lock: 20 gauge in left antecubital area and blood collected. The ms18 patient tolerated the procedure well. ms18 MTDD
--- NOTE | 2016-10-21 18:50 | EDDOCDS ---
Physician Documentation [facility] Name: Prabhakar Maki Age: 21 yrs Sex: Male : 1995 Arrival Date: 10/21/2016 Time: 13:05 Bed 3 Private MD: Disposition: 10/21/16 18:28 Discharged to Home/Self Care. Impression: Injury of muscle, fascia and tendon at neck level, Low back pain - and thoracic back pain S/P fall. - Condition is Stable. - Discharge Instructions: Back Pain, Adult, Musculoskeletal Pain, Back Pain, Adult, [id number], Back Exercises, [id number], Heat Therapy. - Prescriptions for Naprosyn 500 mg Oral Tablet - take 1 tablet by ORAL route 2 times per day take with food; 30 tablet. - Medication Reconciliation, Local Pharmacy Hours form. - Follow up: [facility]; When: 1 - 2 days. - Problem is new. - Symptoms have improved. Historical: - Allergies: bee allergy; - Home Meds: 1. none - PMHx: Heart Murmur; Sciatica; - PSHx: none; - Social history: refuses to communicate verbally. Smoking status: . - Family history: Not pertinent. - : The pt / caregiver states he / she is not on anticoagulants. Home medication list is obtained from [employer] import data. - Exposure Risk Screening:: None identified. Vital Signs: 10/21 13:15 BP 140 / 92; Pulse 85; Resp 18; Temp 99.4(TE); Pulse Ox 99% on R/A; kcs 13:15 BP 140 / 92 (auto/); kcs 13:17 Pulse 83 MON; Pulse Ox 99% ; kcs 13:30 BP 145 / 95 (auto/); kcs 13:30 Pulse 97 MON; Pulse Ox 98% ; kcs 13:45 BP 135 / 73 (auto/); kcs 13:46 Pulse 75 MON; Pulse Ox 100% ; kcs 14:00 BP 144 / 76 (auto/); kcs 14:00 Pulse 78 MON; Pulse Ox 99% ; kcs 15:56 Pulse 74 MON; Pulse Ox 98% ; rs3 15:57 BP 131 / 84 (auto/); rs3 16:00 BP 134 / 80 (auto/); rs3 16:00 Pulse 74 MON; Pulse Ox 98% ; rs3 16:08 Weight 92.99 kg / 205.01 lbs; jlf 16:15 BP 138 / 82 (auto/); rs3 16:15 Pulse 73 MON; Pulse Ox 99% ; rs3 16:30 BP 129 / 76 (auto/); rs3 16:30 Pulse 72 MON; Pulse Ox 99% ; rs3 16:45 BP 159 / 70 (auto/); rs3 16:45 Pulse 79 MON; Pulse Ox 99% ; rs3 16:57 Pulse 82 MON; Pulse Ox 96% ; rs3 17:03 BP 175 / 86 (auto/); rs3 17:05 BP 175 / 86; Pulse 87; Resp 20; Pulse Ox 97% ; Pain 8/10; jlf 17:15 BP 183 / 86 (auto/); rs3 17:15 Pulse 78 MON; Pulse Ox 98% ; rs3 17:30 BP 180 / 90 (auto/); rs3 17:30 Pulse 75 MON; Pulse Ox 98% ; rs3 18:00 BP 162 / 83 (auto/); rs3 18:00 Pulse 85 MON; Pulse Ox 97% ; rs3 18:15 BP 173 / 93 (auto/); rs3 18:15 Pulse 84 MON; Pulse Ox 99% ; rs3 18:30 BP 168 / 91 (auto/); rs3 18:30 BP 168 / 91; Pulse 74 MON; Resp 18; Temp 98(T); Pulse Ox 98% on R/A; rs3 MDM: 13:16 IV Saline Lock ordered. sd1 13:17 CT Head Without Contrast Ordered. EDMS 13:17 CT Spine,Cervical W/o Contrast Ordered. EDMS 13:17 Spine. Lumbosacral, Complete Ordered. EDMS 13:18 Urine Toxicology Ordered. EDMS 13:18 Spine, Thoracic 3 Views Ordered. EDMS 13:18 ECG WITH READING ER PHYS+CARDIAG ordered. EDMS 13:44 Consult PFS/PSA/Chief Accounting Officer ordered. sd1 13:44 Consult PFS/PSA/Chief Accounting Officer: Patient's case requires discussion with on-call sd1 Psychiatrist ordered. 13:44 PSA/PFS to call Nursing Outside Maintenance Worker, to enter patient data on [place] Safe Act if patient sd1 involuntarily admitted or transferred for SI or HI ordered. 13:44 Confirm accurate psychiatric medication list and times of last dosage ordered. sd1 13:44 Detain Pt Until Medically/PFS Cleared ordered. sd1 13:45 Acetaminophen Level Ordered. EDMS 13:45 Basic Metabolic Profile Ordered. EDMS 13:45 Complete Blood Count Ordered. EDMS 13:45 Ethyl Alcohol (ethanol) Ordered. EDMS 13:45 Liver Profile Ordered. EDMS 13:45 Salicylate Level Ordered. EDMS 13:45 Thyroid Stimulating Hormone Ordered. EDMS 14:07 ketorolac 30 mg IVP once ordered. sd1 15:17 [facility] Payment Agreement was scanned into [employer] and attached to record. jp5 15:17 Financial registration complete. jp5 15:23 Acetaminophen Level Reviewed. sd1 15:23 Liver Profile Reviewed. sd1 15:23 Salicylate Level Reviewed. sd1 15:23 Basic Metabolic Profile Reviewed. sd1 15:23 Complete Blood Count Reviewed. sd1 15:23 Ethyl Alcohol (ethanol) Reviewed. sd1 15:23 Thyroid Stimulating Hormone Reviewed. sd1 15:23 CT Head Without Contrast Reviewed. sd1 15:23 CT Spine,Cervical W/o Contrast Reviewed. sd1 15:23 Misc. Nursing Order ordered. sd1 15:49 Consult: Chronic Disease Epidemiologist ordered. sd1 16:05 HYDROcodone-acetaminophen 5 mg-325 mg 1 tabs PO once ordered. sd1 16:17 Urine Toxicology Reviewed. sd1 17:02 Consult: Chronic Disease Epidemiologist complete. ca Administered Medications: 14:15 Drug: ketorolac 30 mg [ketorolac 30 mg/mL (1 mL) injection solution (1 mL)] {Note: SL kcs with good blood return and flushed easily.} Route: IVP; Site: left antecubital; 16:07 Follow up: Response: No significant change. rs3 16:38 Drug: HYDROcodone-acetaminophen 1 tabs [hydrocodone 5 mg-acetaminophen 325 mg tablet (1 rs3 tabs)] Route: PO; 17:30 Follow up: Response: Pain is decreased rs3 Signatures: Dispatcher [employer] EDMS Kiara Barlow MD MD sd1 Divya Combs, RN RN kcs Ion, Mariaa, PSA PSA ca Nia Mcmanus RN RN rs3 Gunjan Chavez RN RN ms18 Pee Vences jp5 The chart was reviewed and I authenticate all verbal orders and agree with the evaluation and treatment provided.Attachments: 15:17 [facility] Payment Agreement jp5 [facility]
--- NOTE | 2016-10-21 21:22 | ECGEPIP ---
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
--- NOTE | 2016-10-23 19:50 | EDDOCDS ---
Physician Documentation [facility] Name: Prabhakar Maki Age: 21 yrs Sex: Male : 1995 Arrival Date: 10/21/2016 Time: 13:05 Bed 3 Private MD: Disposition: 10/21/16 18:28 Discharged to Home/Self Care. Impression: Injury of muscle, fascia and tendon at neck level, Low back pain - and thoracic back pain S/P fall. - Condition is Stable. - Discharge Instructions: Back Pain, Adult, Musculoskeletal Pain, Back Pain, Adult, Lxmi-sh-Ligu, Back Exercises, Nonl-jq-Ftlo, Heat Therapy. - Prescriptions for Naprosyn 500 mg Oral Tablet - take 1 tablet by ORAL route 2 times per day take with food; 30 tablet. - Medication Reconciliation, Local Pharmacy Hours form. - Follow up: [facility]; When: 1 - 2 days. - Problem is new. - Symptoms have improved. Historical: - Allergies: bee allergy; - Home Meds: 1. none - PMHx: Heart Murmur; Sciatica; - PSHx: none; - Social history: refuses to communicate verbally. Smoking status: . - Family history: Not pertinent. - : The pt / caregiver states he / she is not on anticoagulants. Home medication list is obtained from [employer] import data. - Exposure Risk Screening:: None identified. Vital Signs: 10/21 13:15 BP 140 / 92; Pulse 85; Resp 18; Temp 99.4(TE); Pulse Ox 99% on R/A; kcs 13:15 BP 140 / 92 (auto/); kcs 13:17 Pulse 83 MON; Pulse Ox 99% ; kcs 13:30 BP 145 / 95 (auto/); kcs 13:30 Pulse 97 MON; Pulse Ox 98% ; kcs 13:45 BP 135 / 73 (auto/); kcs 13:46 Pulse 75 MON; Pulse Ox 100% ; kcs 14:00 BP 144 / 76 (auto/); kcs 14:00 Pulse 78 MON; Pulse Ox 99% ; kcs 15:56 Pulse 74 MON; Pulse Ox 98% ; rs3 15:57 BP 131 / 84 (auto/); rs3 16:00 BP 134 / 80 (auto/); rs3 16:00 Pulse 74 MON; Pulse Ox 98% ; rs3 16:08 Weight 92.99 kg / 205.01 lbs; jlf 16:15 BP 138 / 82 (auto/); rs3 16:15 Pulse 73 MON; Pulse Ox 99% ; rs3 16:30 BP 129 / 76 (auto/); rs3 16:30 Pulse 72 MON; Pulse Ox 99% ; rs3 16:45 BP 159 / 70 (auto/); rs3 16:45 Pulse 79 MON; Pulse Ox 99% ; rs3 16:57 Pulse 82 MON; Pulse Ox 96% ; rs3 17:03 BP 175 / 86 (auto/); rs3 17:05 BP 175 / 86; Pulse 87; Resp 20; Pulse Ox 97% ; Pain 8/10; jlf 17:15 BP 183 / 86 (auto/); rs3 17:15 Pulse 78 MON; Pulse Ox 98% ; rs3 17:30 BP 180 / 90 (auto/); rs3 17:30 Pulse 75 MON; Pulse Ox 98% ; rs3 18:00 BP 162 / 83 (auto/); rs3 18:00 Pulse 85 MON; Pulse Ox 97% ; rs3 18:15 BP 173 / 93 (auto/); rs3 18:15 Pulse 84 MON; Pulse Ox 99% ; rs3 18:30 BP 168 / 91 (auto/); rs3 18:30 BP 168 / 91; Pulse 74 MON; Resp 18; Temp 98(T); Pulse Ox 98% on R/A; rs3 MDM: 13:16 IV Saline Lock ordered. sd1 13:17 CT Head Without Contrast Ordered. EDMS 13:17 CT Spine,Cervical W/o Contrast Ordered. EDMS 13:17 Spine. Lumbosacral, Complete Ordered. EDMS 13:18 Urine Toxicology Ordered. EDMS 13:18 Spine, Thoracic 3 Views Ordered. EDMS 13:18 ECG WITH READING ER PHYS+CARDIAG ordered. EDMS 13:44 Consult PFS/PSA/Youtuber ordered. sd1 13:44 Consult PFS/PSA/Youtuber: Patient's case requires discussion with on-call sd1 Psychiatrist ordered. 13:44 PSA/PFS to call Nursing Truck Driver Rubbish Collector, to enter patient data on [place] Safe Act if patient sd1 involuntarily admitted or transferred for SI or HI ordered. 13:44 Confirm accurate psychiatric medication list and times of last dosage ordered. sd1 13:44 Detain Pt Until Medically/PFS Cleared ordered. sd1 13:45 Acetaminophen Level Ordered. EDMS 13:45 Basic Metabolic Profile Ordered. EDMS 13:45 Complete Blood Count Ordered. EDMS 13:45 Ethyl Alcohol (ethanol) Ordered. EDMS 13:45 Liver Profile Ordered. EDMS 13:45 Salicylate Level Ordered. EDMS 13:45 Thyroid Stimulating Hormone Ordered. EDMS 14:07 ketorolac 30 mg IVP once ordered. sd1 15:17 [facility] [place] was scanned into [employer] and attached to record. jp5 15:17 Financial registration complete. jp5 15:23 Acetaminophen Level Reviewed. sd1 15:23 Liver Profile Reviewed. sd1 15:23 Salicylate Level Reviewed. sd1 15:23 Basic Metabolic Profile Reviewed. sd1 15:23 Complete Blood Count Reviewed. sd1 15:23 Ethyl Alcohol (ethanol) Reviewed. sd1 15:23 Thyroid Stimulating Hormone Reviewed. sd1 15:23 CT Head Without Contrast Reviewed. sd1 15:23 CT Spine,Cervical W/o Contrast Reviewed. sd1 15:23 Misc. Nursing Order ordered. sd1 15:49 Consult: Tube Making Machine Operator ordered. sd1 16:05 HYDROcodone-acetaminophen 5 mg-325 mg 1 tabs PO once ordered. sd1 16:17 Urine Toxicology Reviewed. sd1 17:02 Consult: Tube Making Machine Operator complete. ca 10/22 10:31 T-Sheet-- Draft Copy was scanned into [employer] and attached to record. gb 10:31 ECG/EKG was scanned into [employer] and attached to record. gb Administered Medications: 10/21 14:15 Drug: ketorolac 30 mg [ketorolac 30 mg/mL (1 mL) injection solution (1 mL)] {Note: SL kcs with good blood return and flushed easily.} Route: IVP; Site: left antecubital; 16:07 Follow up: Response: No significant change. rs3 16:38 Drug: HYDROcodone-acetaminophen 1 tabs [hydrocodone 5 mg-acetaminophen 325 mg tablet (1 rs3 tabs)] Route: PO; 17:30 Follow up: Response: Pain is decreased rs3 Signatures: Dispatcher [employer] EDMS Kiara Barlow MD MD sd1 Divya Combs, RN RN kcs Mariaa Lemon, PSA PSA ca Smita Day, Reg Reg gb Nia Mcmanus,RN RN rs3 Gunjan Chavez RN RN [id number] Pee Vences jp5 The chart was reviewed and I authenticate all verbal orders and agree with the evaluation and treatment provided.Attachments: 15:17 [facility] Payment Agreement jp5 10/22 10:31 T-Sheet-- Draft Copy gb 10:31 ECG/EKG gb Chart Complete MTDD
--- NOTE | 2016-10-23 19:50 | EDDOCDS ---
Physician Documentation [facility] Name: Prabhakar Maki Age: 21 yrs Sex: Male : 1995 Arrival Date: 10/21/2016 Time: 13:05 Bed 3 Private MD: Disposition: 10/21/16 18:28 Discharged to Home/Self Care. Impression: Injury of muscle, fascia and tendon at neck level, Low back pain - and thoracic back pain S/P fall. - Condition is Stable. - Discharge Instructions: Back Pain, Adult, Musculoskeletal Pain, Back Pain, Adult, [id number], Back Exercises, [id number]-[id number], Heat Therapy. - Prescriptions for Naprosyn 500 mg Oral Tablet - take 1 tablet by ORAL route 2 times per day take with food; 30 tablet. - Medication Reconciliation, Local Pharmacy Hours form. - Follow up: [facility] [place]; When: 1 - 2 days. - Problem is new. - Symptoms have improved. Historical: - Allergies: bee allergy; - Home Meds: 1. none - PMHx: Heart Murmur; Sciatica; - PSHx: none; - Social history: refuses to communicate verbally. Smoking status: . - Family history: Not pertinent. - : The pt / caregiver states he / she is not on anticoagulants. Home medication list is obtained from [employer] import data. - Exposure Risk Screening:: None identified. Vital Signs: 10/21 13:15 BP 140 / 92; Pulse 85; Resp 18; Temp 99.4(TE); Pulse Ox 99% on R/A; kcs 13:15 BP 140 / 92 (auto/); kcs 13:17 Pulse 83 MON; Pulse Ox 99% ; kcs 13:30 BP 145 / 95 (auto/); kcs 13:30 Pulse 97 MON; Pulse Ox 98% ; kcs 13:45 BP 135 / 73 (auto/); kcs 13:46 Pulse 75 MON; Pulse Ox 100% ; kcs 14:00 BP 144 / 76 (auto/); kcs 14:00 Pulse 78 MON; Pulse Ox 99% ; kcs 15:56 Pulse 74 MON; Pulse Ox 98% ; rs3 15:57 BP 131 / 84 (auto/); rs3 16:00 BP 134 / 80 (auto/); rs3 16:00 Pulse 74 MON; Pulse Ox 98% ; rs3 16:08 Weight 92.99 kg / 205.01 lbs; jlf 16:15 BP 138 / 82 (auto/); rs3 16:15 Pulse 73 MON; Pulse Ox 99% ; rs3 16:30 BP 129 / 76 (auto/); rs3 16:30 Pulse 72 MON; Pulse Ox 99% ; rs3 16:45 BP 159 / 70 (auto/); rs3 16:45 Pulse 79 MON; Pulse Ox 99% ; rs3 16:57 Pulse 82 MON; Pulse Ox 96% ; rs3 17:03 BP 175 / 86 (auto/); rs3 17:05 BP 175 / 86; Pulse 87; Resp 20; Pulse Ox 97% ; Pain 8/10; jlf 17:15 BP 183 / 86 (auto/); rs3 17:15 Pulse 78 MON; Pulse Ox 98% ; rs3 17:30 BP 180 / 90 (auto/); rs3 17:30 Pulse 75 MON; Pulse Ox 98% ; rs3 18:00 BP 162 / 83 (auto/); rs3 18:00 Pulse 85 MON; Pulse Ox 97% ; rs3 18:15 BP 173 / 93 (auto/); rs3 18:15 Pulse 84 MON; Pulse Ox 99% ; rs3 18:30 BP 168 / 91 (auto/); rs3 18:30 BP 168 / 91; Pulse 74 MON; Resp 18; Temp 98(T); Pulse Ox 98% on R/A; rs3 MDM: 13:16 IV Saline Lock ordered. sd1 13:17 CT Head Without Contrast Ordered. EDMS 13:17 CT Spine,Cervical W/o Contrast Ordered. EDMS 13:17 Spine. Lumbosacral, Complete Ordered. EDMS 13:18 Urine Toxicology Ordered. EDMS 13:18 Spine, Thoracic 3 Views Ordered. EDMS 13:18 ECG WITH READING ER PHYS+CARDIAG ordered. EDMS 13:44 Consult PFS/PSA/Wetland Scientist ordered. sd1 13:44 Consult PFS/PSA/Wetland Scientist: Patient's case requires discussion with on-call sd1 Psychiatrist ordered. 13:44 PSA/PFS to call Nursing Phytochemistry Professor, to enter patient data on [place] Safe Act if patient sd1 involuntarily admitted or transferred for SI or HI ordered. 13:44 Confirm accurate psychiatric medication list and times of last dosage ordered. sd1 13:44 Detain Pt Until Medically/PFS Cleared ordered. sd1 13:45 Acetaminophen Level Ordered. EDMS 13:45 Basic Metabolic Profile Ordered. EDMS 13:45 Complete Blood Count Ordered. EDMS 13:45 Ethyl Alcohol (ethanol) Ordered. EDMS 13:45 Liver Profile Ordered. EDMS 13:45 Salicylate Level Ordered. EDMS 13:45 Thyroid Stimulating Hormone Ordered. EDMS 14:07 ketorolac 30 mg IVP once ordered. sd1 15:17 [facility] [place] Payment Agreement was scanned into [employer] and attached to record. jp5 15:17 Financial registration complete. jp5 15:23 Acetaminophen Level Reviewed. sd1 15:23 Liver Profile Reviewed. sd1 15:23 Salicylate Level Reviewed. sd1 15:23 Basic Metabolic Profile Reviewed. sd1 15:23 Complete Blood Count Reviewed. sd1 15:23 Ethyl Alcohol (ethanol) Reviewed. sd1 15:23 Thyroid Stimulating Hormone Reviewed. sd1 15:23 CT Head Without Contrast Reviewed. sd1 15:23 CT Spine,Cervical W/o Contrast Reviewed. sd1 15:23 Misc. Nursing Order ordered. sd1 15:49 Consult: Air Pollution Inspector ordered. sd1 16:05 HYDROcodone-acetaminophen 5 mg-325 mg 1 tabs PO once ordered. sd1 16:17 Urine Toxicology Reviewed. sd1 17:02 Consult: Air Pollution Inspector complete. ca 10/22 10:31 T-Sheet-- Draft Copy was scanned into [employer] and attached to record. gb 10:31 ECG/EKG was scanned into [employer] and attached to record. gb Administered Medications: 10/21 14:15 Drug: ketorolac 30 mg [ketorolac 30 mg/mL (1 mL) injection solution (1 mL)] {Note: SL kcs with good blood return and flushed easily.} Route: IVP; Site: left antecubital; 16:07 Follow up: Response: No significant change. rs3 16:38 Drug: HYDROcodone-acetaminophen 1 tabs [hydrocodone 5 mg-acetaminophen 325 mg tablet (1 rs3 tabs)] Route: PO; 17:30 Follow up: Response: Pain is decreased rs3 Signatures: Dispatcher [employer] EDMS Kiara Barlow MD MD sd1 Divya Combs, RN RN kcs Mariaa Lemon, PSA PSA ca Smita Day, Reg Reg gb Nia Mcmanus,RN RN rs3 Gunjan Chavez RN RN ms18 Pee Vences jp5 The chart was reviewed and I authenticate all verbal orders and agree with the evaluation and treatment provided.Attachments: 15:17 [facility] Payment Agreement jp5 10/22 10:31 T-Sheet-- Draft Copy gb 10:31 ECG/EKG gb Chart Complete MTDD
--- NOTE | 2016-10-23 19:50 | EDDOCDS ---
Nurse's Notes [facility] Name: Regis Maki Age: 21 yrs Sex: Male : 1995 Arrival Date: 10/21/2016 Time: 13:05 Bed 3 Private MD: Diagnosis: Injury of muscle, fascia and tendon at neck level;Low back pain-and thoracic back pain S/P fall Presentation: 10/21 13:08 Presenting complaint: EMS states: patient fell down about 8 steps. Patient refusing to kcs talk but will answer questions by blinking 1 for yes and 2 blinks for no. Unwitnessed fall. Suicide/Homicide risk assessment- the patient denies having any suicidal and/or homicidal ideations and does not present with any other emotional, behavioral or mental health complaints. Status: Unknown if public services assistant or dependent. Transition of care: patient was not received from another setting of care. Care prior to arrival: See EMS report. C collar in place. Placed on backboard. 13:08 Method Of Arrival: Ambulance kcs 13:23 Adult Sepsis Screening: Patient's respiratory rate is less than 22. Systolic blood ms18 pressure is greater than 100. Patient has a qSOFA score of 0- Negative Sepsis Screen. 13:23 Acuity: MARK Level 3 ms18 Triage Assessment: 13:08 General: Appears comfortable, well developed, well nourished, well groomed, Behavior is kcs uncooperative. The patient is triaged at the bedside. See Assessment in Nurses Notes section of ED record. Neurological: Level of Consciousness is awake, alert. Respiratory: Airway is patent Respiratory effort is even, unlabored, Respiratory pattern is regular. Derm: Skin is intact, is healthy with good turgor, Skin is dry, Skin is black. 13:14 Pain: Location: right arm. HIV screening NA for this visit Offered previously. kcs Historical: - Allergies: bee allergy; - Home Meds: 1. none - PMHx: Heart Murmur; Sciatica; - PSHx: none; - Social history: refuses to communicate verbally. Smoking status: . - Family history: Not pertinent. - : The pt / caregiver states he / she is not on anticoagulants. Home medication list is obtained from [employer] import data. - Exposure Risk Screening:: None identified. Screenin:34 Screening information is obtained from the patient. Fall risk: At risk due to injury. ms18 Assistance ADL's: requires no assistance with activities of daily living. Nutritional screening: No deficits noted. Advance Directives: There is no living will. 18:49 Abuse/DV Screen: The patient / caregiver reports he/she is: not in a situation that rs3 causes fear, pain or injury. home support is adequate. Assessment: 13:17 General: patient log rolled maintaining neck stabilization - back examined by MD and kcs backboard removed - Currie collar remains intact.. 13:34 General: Appears in no apparent distress, uncomfortable, Behavior is cooperative, ms18 inappropriate for age, Pt not speaking at this time. Pt is communicating by blinking once for yes and two for no. Pain: Location: right arm. Neurological: Level of Consciousness is awake, alert, obeys commands. Cardiovascular: Rhythm is sinus rhythm. Respiratory: Airway is patent Respiratory effort is even, unlabored. Derm: Skin is normal, pt has some superficial scratches to the inside of his L forearm. There are several lateral georges that appear to be self inflicted. Pt still won't speak to staff. Musculoskeletal: Circulation, motion, and sensation intact Capillary refill < 3 seconds No deformity noted. 14:05 Reassessment: out to desk and states patient is asking for something for pain.. kcs 14:06 General: Currie collar removed by Dr. Montgomery. . kcs 14:19 Reassessment: blankets applied - patient noted to be shaking.. kcs 15:30 General: Appears in no apparent distress, Behavior is appropriate for age, cooperative, rs3 resting comfortable. family at bedside. no apparent distress. vitals stable. reports of back pain 07/12. attending provider aware. ordered med given. 16:30 General: Appears in no apparent distress, Behavior is appropriate for age, patient rs3 reports of back pain. assisted with walking. slow unsteady limited by pain. attending provider made aware. . 17:39 General: Appears in no apparent distress, Behavior is appropriate for age, cooperative, rs3 resting comfortable. family at bedside. reports of back pain. will continue to monitor. . 18:25 General: Appears in no apparent distress, resting comfortable. sleeping. vital stable. rs3 no distress noted. . Social Work Consult: 16:40 Social Work Note: Pt presented for c/o fall on stairs today. States he feels tired and ca sleepy. Initially refusing to speak with anyone except , who is at bedside. Pt does have hx of anxiety and is seen bi-weekly at [facility]. Pt is cooperative, A&O x 4. States he has no concerns. Denies any SI or HI. Per , no concerns. Pt wishes to be discharged to home. Vital Signs: 13:15 BP 140 / 92; Pulse 85; Resp 18; Temp 99.4(TE); Pulse Ox 99% on R/A; kcs 13:15 BP 140 / 92 (auto/); kcs 13:17 Pulse 83 MON; Pulse Ox 99% ; kcs 13:30 BP 145 / 95 (auto/); kcs 13:30 Pulse 97 MON; Pulse Ox 98% ; kcs 13:45 BP 135 / 73 (auto/); kcs 13:46 Pulse 75 MON; Pulse Ox 100% ; kcs 14:00 BP 144 / 76 (auto/); kcs 14:00 Pulse 78 MON; Pulse Ox 99% ; kcs 15:56 Pulse 74 MON; Pulse Ox 98% ; rs3 15:57 BP 131 / 84 (auto/); rs3 16:00 BP 134 / 80 (auto/); rs3 16:00 Pulse 74 MON; Pulse Ox 98% ; rs3 16:08 Weight 92.99 kg; jlf 16:15 BP 138 / 82 (auto/); rs3 16:15 Pulse 73 MON; Pulse Ox 99% ; rs3 16:30 BP 129 / 76 (auto/); rs3 16:30 Pulse 72 MON; Pulse Ox 99% ; rs3 16:45 BP 159 / 70 (auto/); rs3 16:45 Pulse 79 MON; Pulse Ox 99% ; rs3 16:57 Pulse 82 MON; Pulse Ox 96% ; rs3 17:03 BP 175 / 86 (auto/); rs3 17:05 BP 175 / 86; Pulse 87; Resp 20; Pulse Ox 97% ; Pain 8/10; jlf 17:15 BP 183 / 86 (auto/); rs3 17:15 Pulse 78 MON; Pulse Ox 98% ; rs3 17:30 BP 180 / 90 (auto/); rs3 17:30 Pulse 75 MON; Pulse Ox 98% ; rs3 18:00 BP 162 / 83 (auto/); rs3 18:00 Pulse 85 MON; Pulse Ox 97% ; rs3 18:15 BP 173 / 93 (auto/); rs3 18:15 Pulse 84 MON; Pulse Ox 99% ; rs3 18:30 BP 168 / 91 (auto/); rs3 18:30 BP 168 / 91; Pulse 74 MON; Resp 18; Temp 98(T); Pulse Ox 98% on R/A; rs3 Vitals: 13:15 Log In Time N/A - ambulance arrival. kcs ED Course: 13:07 Patient visited by Anaya Ferrer, Vacuum Bottle Assembler. deg 13:07 Patient moved to Waiting deg 13:08 Greta Chavez RN is Primary Nurse. kcs 13:08 Patient moved to 3 kcs 13:14 Kiara Barlow MD is Attending Physician. sd1 13:14 Patient visited by Kiara Barlow MD. sd1 13:23 Patient visited by Gunjan Chavez RN. ms18 13:24 Triage Initiated ms18 13:30 Inserted saline lock: 18 gauge in left antecubital area and blood collected. The ms18 patient tolerated the procedure well. 13:34 The patient / caregiver is instructed regarding the plan of care and ED course. ms18 Accompanied by Family Member, Patient has correct armband on for positive identification. Placed in gown. Bed in low position. Call light in reach. Side rails up X2. radiation monitor on. Pulse ox on. NIBP on. Property :Personal belongings accompany Pt. 14:17 Patient visited by Gunjan Chavez RN. ms18 14:33 CT Head Without Contrast Returned. EDMS 14:33 CT Spine,Cervical W/o Contrast Returned. EDMS 14:53 Patient visited by Negro Dennis PCA. jlf 15:17 [facility] Payment Agreement was scanned into [employer] and attached to record. jp5 15:39 Patient visited by Nia Mcmanus RN. rs3 15:43 Nia Mcmanus RN is Primary Nurse. rs3 16:09 Patient visited by Negro Dennis PCA. jlf 16:20 Spine, Thoracic 3 Views Returned. EDMS 16:20 Spine. Lumbosacral, Complete Returned. EDMS 16:29 EKG done. (by ED staff). Reviewed by Kiara Barlow MD. rn1 17:05 Patient visited by Negro Dennis PCA. jlf 17:06 Notified attending ED physician of ambulated pt per Dr. flaherty, pt did not tolerate jlf well. Pt needed two assist, and would not keep eyes open, he kept bending over saying he was in pain. Pt took four steps from the stretcher and couldn't tolerate anymore. Dr. Montgomery aware. 17:35 Patient visited by Negro Dennis PCA. jlf 18:10 Patient visited by Nia Mcmanus RN. rs3 18:28 Kortney Villanueva, [facility] is Referral Physician. sd1 18:49 Discontinued lock bleeding controlled, pressure dressing applied, No redness/swelling rs3 at site. No procedures done that require assistance. 21:58 EKG-ADULT Returned. EDMS 10/22 10:31 T-Sheet-- Draft Copy was scanned into [employer] and attached to record. gb 10:31 ECG/EKG was scanned into [employer] and attached to record. gb Administered Medications: 10/21 14:15 Drug: ketorolac 30 mg [ketorolac 30 mg/mL (1 mL) injection solution (1 mL)] {Note: SL kcs with good blood return and flushed easily.} Route: IVP; Site: left antecubital; 16:07 Follow up: Response: No significant change. rs3 16:38 Drug: HYDROcodone-acetaminophen 1 tabs [hydrocodone 5 mg-acetaminophen 325 mg tablet (1 rs3 tabs)] Route: PO; 17:30 Follow up: Response: Pain is decreased rs3 Order Results: Lab Order: Urine Toxicology; SPEC'M 10/21/16 15:41 Test: AMPHETAMINES LEVEL URINE; Value: NEGATIVE; Range: NEGATIVE; Status: F Test: BARBITURATES URINE; Value: NEGATIVE; Range: NEGATIVE; Status: F Test: BENZODIAZEPINES URINE; Value: NEGATIVE; Range: NEGATIVE; Status: F Test: CANNABINOIDS URINE; Value: NEGATIVE; Range: NEGATIVE; Status: F Test: COCAINE METABOLITE URINE; Value: NEGATIVE; Range: NEGATIVE; Status: F Test: METHADONE URINE; Value: NEGATIVE; Range: NEGATIVE; Status: F Test: OPIATES URINE; Value: NEGATIVE; Range: NEGATIVE; Status: F Test: TRICYCLIC ANTIDEPRESS URINE; Value: NEGATIVE; Range: NEGATIVE; Status: F Test Note: ; ALL PRESUMPTIVE POSITIVE FINDINGS ARE UNCONFIRMED NORMAL VALUES THRESHOLD IN NG/ML AMPHETAMINES 1000 METHAMPHETAMINES 1000 BARBITURATES 300 BENZODIAZEPINES 300 CANNABINOIDS (THC) 50 COCAINE METABOLITE 300 METHADONE 300 OPIATES 300 PHENCYCLIDINE 25 TRICYCLIC ANTIDEPRESSANTS 1000 RESULTS ARE FOR MEDICAL PURPOSES ONLY. ALL URINE SPECIMENS WILL BE SAVED FOR 3 DAYS. IF CONFIRMATION OF A PRESUMPTIVE POSTIVE SCREEN RESULT IS DESIRED, CALL CHEMISTRY ([phone]) AND REQUEST URINE TO BE SENT TO REFERENCE LAB. FOR A LIST OF CLOSELY RELATED COMPOUNDS PLEASE CALL THE LAB. Lab Order: Acetaminophen Level; SPEC'M 10/21/16 13:31 Test: ACETAMINOPHEN LEVEL; Value: < 2.0; Range: 10.0-30.0; Abnormal: Below low normal; Units: UG/ML; Status: F Lab Order: Basic Metabolic Profile; SPEC'M 10/21/16 13:31 Test: GLUCOSE, FASTING; Value: 86; Range: 70-105; Units: MG/DL; Status: F Test: BLOOD UREA NITROGEN; Value: 16; Range: 7-18; Units: MG/DL; Status: F Test: CREATININE FOR GFR; Value: 1.28; Range: 0.70-1.30; Units: MG/DL; Status: F Test: GLOMERULAR FILTRATION RATE; Value: > 60.0; Range: >60; Status: F Test: SODIUM LEVEL; Value: 142; Range: 136-145; Units: MEQ/L; Status: F Test: POTASSIUM SERUM; Value: 3.7; Range: 3.5-5.1; Units: MEQ/L; Status: F Test: CHLORIDE LEVEL; Value: 105; Range: 98-107; Units: MEQ/L; Status: F Test: CARBON DIOXIDE LEVEL; Value: 28; Range: 21-32; Units: MEQ/L; Status: F Test: ANION GAP; Value: 9; Range: 8-16; Units: MEQ/L; Status: F Test: CALCIUM LEVEL; Value: 9.3; Range: 8.5-10.1; Units: MG/DL; Status: F Test Note: ; Units are mL/min/1.73 m2 Chronic Kidney Disease Staging per NKF: Stage I & II GFR >=60 Normal to Mildly Decreased Stage III GFR 30-59 Moderately Decreased Stage IV GFR 15-29 Severely Decreased Stage V GFR <15 Very Little GFR Left ESRD GFR <15 on CLINICAL APPEALS RN Lab Order: Complete Blood Count; [facility] 10/21/16 13:31 Test: WHITE BLOOD COUNT; Value: 6.8; Range: 4.0-10.0; Units: K/mm3; Status: F Test: RED BLOOD COUNT; Value: 5.19; Range: 4.30-6.10; Units: M/mm3; Status: F Test: HEMOGLOBIN; Value: 14.9; Range: 14.0-18.0; Units: g/dl; Status: F Test: HEMATOCRIT; Value: 43.9; Range: 42.0-52.0; Units: %; Status: F Test: MEAN CORPUSCULAR VOLUME; Value: 84.6; Range: 80.0-96.0; Units: fl; Status: F Test: MEAN CORPUSCULAR HEMOGLOBIN; Value: 28.8; Range: 27.0-33.0; Units: pg; Status: F Test: MEAN CORPUSCULAR HGB CONC; Value: 34.0; Range: 32.0-36.5; Units: g/dl; Status: F Test: RED CELL DISTRIBUTION WIDTH; Value: 12.2; Range: 11.5-14.5; Units: %; Status: F Test: PLATELET COUNT, AUTOMATED; Value: 239; Range: 150-450; Units: k/mm3; Status: F Lab Order: Ethyl Alcohol (ethanol); [facility] 10/21/16 13:31 Test: ETHYL ALCOHOL (ETHANOL); Value: < 0.003; Range: 0.000-0.010; Units: %; Status: F Lab Order: Liver Profile; [facility] 10/21/16 13:31 Test: AST/SGOT; Value: 17; Range: 15-37; Units: U/L; Status: F Test: ALT/SGPT; Value: 28; Range: 12-78; Units: U/L; Status: F Test: ALKALINE PHOSPHATASE; Value: 72; Range: 45-117; Units: U/L; Status: F Test: BILIRUBIN,TOTAL; Value: 1.1; Range: 0.2-1.0; Abnormal: Above high normal; Units: MG/DL; Status: F Test: BILIRUBIN,DIRECT; Value: 0.2; Range: 0.0-0.2; Units: MG/DL; Status: F Test: TOTAL PROTEIN; Value: 8.3; Range: 6.4-8.2; Abnormal: Above high normal; Units: GM/DL; Status: F Test: ALBUMIN; Value: 4.4; Range: 3.2-5.2; Units: GM/DL; Status: F Test: ALBUMIN/GLOBULIN RATIO; Value: 1.13; Range: 1.00-1.93; Status: F Lab Order: Salicylate Level; SPEC'M 10/21/16 13:31 Test: SALICYLATE LEVEL; Value: < 1.7; Range: 5.0-30.0; Abnormal: Below low normal; Units: MG/DL; Status: F Lab Order: Thyroid Stimulating Hormone; SPEC'M 10/21/16 13:31 Test: THYROID STIMULATING HORMONE; Value: 1.540; Range: 0.358-3.740; Units: uIU/ML; Status: F Radiology Order: CT Head Without Contrast Test: CT Head Without Contrast REASON FOR EXAMINATION: Trauma; CT Head without contrast; ; HISTORY: Trauma; ; COMPARISON: None; ; There is no intraparenchymal hemorrhage, acute infarct, mass or midline shift.; The ventricular system is normal in appearance. There is no extra cerebral; collection. There is no fracture. The visualized sinuses are clear.; ; IMPRESSION: There is no intracranial lesion.; ; ; ; ; Signed by; Arnaldo Vyas MD 10/21/2016 01:54 P; Radiology Order: CT Spine,Cervical W/o Contrast Test: CT Spine,Cervical W/o Contrast REASON FOR EXAMINATION: Trauma; CT cervical spine without contrast; ; HISTORY: Trauma; ; COMPARISON: None; ; There is no acute fracture or subluxation. There is no disc bulge or herniation.; The spinal canal and neural foramina are patent. The intervertebral discs and; vertebral bodies are normal in height.; ; IMPRESSION: There is no acute fracture or subluxation.; ; ; Signed by; Arnaldo Vyas MD 10/21/2016 01:59 P; Radiology Order: Spine. Lumbosacral, Complete Test: Spine. Lumbosacral, Complete REASON FOR EXAMINATION: Trauma; Lumbar spine series: Five views.; ; History: Trauma.; ; Findings: Five views of the lumbar spine show preserved vertebral body heights; and normal alignment. No fracture or collapse is seen. Pedicles and posterior; elements are intact. Sacrum and SI joints are normal in appearance. Multiple; air-filled but nondilated small bowel loops are seen in the central abdomen.; Psoas margins are obscured.; ; Impression:; ; No traumatic bony abnormality seen.; ; ; Signed by; Reji Ybarra MD 10/21/2016 04:20 P; Radiology Order: Spine, Thoracic 3 Views Test: Spine, Thoracic 3 Views REASON FOR EXAMINATION: Trauma; T-spine series: Three views.; ; History: Trauma.; ; Findings: Thoracic vertebral body heights are preserved and alignment is normal.; Pedicles and posterior elements are intact. No paravertebral soft-tissue mass or; edema is seen. No fracture or collapse seen.; ; Impression:; ; Negative thoracic spine series.; ; ; Signed by; Reji Ybarra MD 10/21/2016 04:20 P; Radiology Order: EKG-ADULT Test: EKG-ADULT REASON FOR EXAMINATION: Syncope; Stationary ECG Study; 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 sd1 18:43 Discharge Assessment: patient administered narcotics - yes. Pt provided with safe rs3 discharge. The following High Risk Discharge criteria are identified: None. Discharged to home ambulatory, with family. Condition: stable. Discharge instructions given to patient, family, Instructed on discharge instructions, follow up and referral plans. medication usage, Demonstrated understanding of instructions, medications, Pt was receptive of discharge instructions/ teaching. Prescriptions given X 1. CT Study completed. 18:50 Patient left the ED. rs3 Signatures: Dispatcher [employer] EDMS Kiara Barlow MD MD sd1 Divya Combs, RN RN kcs Anaya Ferrer, Vacuum Bottle Assembler Unit deg Ion, Mariaa, PSA PSA ca Barb, Smita, Reg Reg gb Nia Mcmanus RN RN rs3 Negro Dennis, PAINT MIXER HAND PAINT MIXER HAND corinf Gunjan Chavez RN RN ms18 Regis Flowers rn1 Pee Vences jp5 Corrections: (The following items were deleted from the chart) 13:19 13:15 BP 140 / 92; Pulse 85bpm; Resp 18bpm; Pulse Ox 99% RA; sabine regalado 13:39 13:30 Inserted saline lock: 20 gauge in left antecubital area and blood collected. The ms18 patient tolerated the procedure well. ms18 Chart Complete MTDD
== END 2016-10-21 18:50 | disposition home or self-care (01) ==
LOC: M ED 13:05
DX: S16.1XXA Strain of muscle, fascia and tendon at neck level, initial encounter (principal); S20.229A Contusion of unspecified back wall of thorax, initial encounter; W10.9XXA Fall (on) (from) unspecified stairs and steps, initial encounter; Y92.018 Other place in single-family (private) house as the place of occurrence of the external cause; Y93.89 Activity, other specified; Y99.8 Other external cause status; R01.1 Cardiac murmur, unspecified; M54.30 Sciatica, unspecified side; Z91.030 Bee allergy status
CPT/HCPCS: 36415; 70450; 72072; 72110; 72125; 80048; 80076; 80306; 84443; 85027; 93005; 96374; 99285; G0480; J1885

== ENCOUNTER 2016-10-21 22:46 | Emergency (ER) | payer OTHER | END 2016-10-22 01:40 | disposition left against medical advice (07) | LOC: M ED 22:46 | DX: R31.9 Hematuria, unspecified (principal); R01.1 Cardiac murmur, unspecified; M54.30 Sciatica, unspecified side; Z53.21 Procedure and treatment not carried out due to patient leaving prior to being seen by health care provider; Z91.030 Bee allergy status ==

== ENCOUNTER 2016-10-22 05:02 | Emergency (ER) | payer OTHER ==
[2016-10-22] MEDS ORDERED: ONDANSETRON 4MG/2ML VIAL (J2405) As Ordered ONE (07:30)
[2016-10-22] MEDS ORDERED: MORPHINE 4 MG/ML 1ML SYRINGE As Ordered ONE ×2 (07:31→14:01)
[2016-10-22 07:45] LABS: BASO # 0.1 K/mm3 (0.0-0.2); BASO % 1.9 % (0.0-1.0); EOS # 0.1 K/mm3 (0.0-0.50); EOS % 1.6 % (0.0-3.0); LARGE UNSTAINED CELL # 0.1 K/mm3 (0.0-0.4); LARGE UNSTAINED CELL % 1.5 % (0.0-4.0); LYMPH # 1.5 K/mm3 (1.5-6.5); LYMPH % 22.2 % (24.0-44.0); MEAN CORPUSCULAR HEMOGLOBIN 27.6 pg (27.0-33.0); MEAN CORPUSCULAR HGB CONC 32.1 g/dl (32.0-36.5); MEAN CORPUSCULAR VOLUME 85.9 fl (80.0-96.0); MONO # 0.4 K/mm3 (0.0-0.8); MONO % 6.4 % (0.0-5.0); NEUTROPHILS # 4.1 K/mm3 (1.8-7.7); NEUTROPHILS % 66.3 % (36.0-66.0); PLATELET COUNT, AUTOMATED 221 k/mm3 (150-450); RED CELL DISTRIBUTION WIDTH 13.1 % (11.5-14.5); WHITE BLOOD COUNT 6.1 K/mm3 (4.0-10.0)
[2016-10-22 08:05] LABS: ALBUMIN 4.1 GM/DL (3.2-5.2); ALBUMIN/GLOBULIN RATIO 1.05 (1.00-1.93); ALKALINE PHOSPHATASE 69 U/L (45-117); ALT/SGPT 25 U/L (12-78); ANION GAP 8 MEQ/L (8-16); AST/SGOT 15 U/L (15-37); BILIRUBIN,DIRECT 0.3 MG/DL (0.0-0.2); BILIRUBIN,TOTAL 1.4 MG/DL (0.2-1.0); BLOOD UREA NITROGEN 18 MG/DL (7-18); CALCIUM LEVEL 9.2 MG/DL (8.5-10.1); CARBON DIOXIDE LEVEL 27 MEQ/L (21-32); CHLORIDE LEVEL 105 MEQ/L (98-107); CREATININE FOR GFR 1.23 MG/DL (0.70-1.30); GLOMERULAR FILTRATION RATE > 60.0 (>60); GLUCOSE, FASTING 90 MG/DL (70-105); POTASSIUM SERUM 3.5 MEQ/L (3.5-5.1); SODIUM LEVEL 140 MEQ/L (136-145)
[2016-10-22] MEDS ORDERED: ISOVUE-370 76% 100ML VIAL (Q9967) As Ordered ONE (08:27)
--- NOTE | 2016-10-22 08:40 | REP ---
Scrotal ultrasound 10/22/2016 indication right testicular pain, exclude torsion, 21 neural male Comparison: None Findings: It is to a technique: Color-flow Doppler spectral wave Doppler vasquez-scale imaging used to evaluate the testicles/scrotum Findings: Right testicle measures 4.9 x 2.2 x 3.2 cm. Left testicle measures 4.8 x 2.4 x 3.2 cm. The testes are of homogeneous echotexture bilaterally. There are no intratesticular masses or cysts. There is symmetric perfusion to the bilateral testes therefore no evidence of torsion Right epididymal head is 9.9 mm in length. Left epididymal head 9.9 mm in length and contains a 1.5 cm epididymal head cyst.. There is increased perfusion /hyperemia to the bilateral epididymal heads and epididymal tails system with bilateral epididymitis. There are no hydroceles Impression: Bilateral epididymitis, mild to moderate Testes without masses or torsion bilaterally. 1.5 mm left epididymal head cyst Signed by Mariah Guillen MD 10/22/2016 08:32 A
--- NOTE | 2016-10-22 09:35 | REP ---
CT ABDOMEN AND PELVIS WITH IV CONTRAST: 10/22/2016 INDICATION: Right lower quadrant pain, hematuria; trauma. COMPARISON: CT of the pelvis 03/06/2015 without contrast. TECHNIQUE: Following IV contrast injection with 100 mL Isovue 370 mg/mL IV, 3 mm spiral axial sections were performed through the abdomen and pelvis. FINDINGS: There is mild diffuse fatty infiltration of liver. Spleen, pancreas, gallbladder are unremarkable. There is no biliary dilatation. Adrenal glands are normal. Kidneys are without hydronephrosis or obstructing ureteral calculi bilaterally. There is no perinephric stranding or perinephric hematoma. The ureters are of normal course and caliber. The stomach is contracted. Small bowel is without obstruction. The appendix is visualized and without inflammation. Abdominal aorta is of normal course and caliber. There are no pathologically enlarged retroperitoneal nodes and there is no perinephric hematoma. A few ileocolic lymph nodes are identified in the right lower quadrant, largest 8 mm transverse dimension, likely reactive in etiology. Bladder is underdistended yet unremarkable in appearance. Prostate is not enlarged. There is moderate retained stool within the colon with sparing of the transverse colon there is no free air or ascites. Visualized portions of the lower thoracic spine, lumbosacral spine, bony pelvis and hips are without fracture or pelvic diastases. IMPRESSION: 1. Mild diffuse fatty infiltration of liver. 2. Few subcentimeter nonspecific ileocolic lymph nodes in the right lower quadrant, likely reactive in etiology. 3. No acute intra-abdominal or pelvic pathology. 4. Visualized portions of lower thoracic, lumbosacral spine, pelvis and hips without fracture or displacement. Signed by Mariah Guillen MD 10/25/2016 10:37 A
[2016-10-22] MEDS ORDERED: CYSTO-CONRAY II 17.2% 250ML VIAL (Q9958) As Ordered ONE (11:03)
[2016-10-22] MEDS ORDERED: DOXYCYCLINE HYCLATE 100 MG TAB As Ordered ONE (15:18)
[2016-10-22] MEDS ORDERED: cefTRIAXone SOD 250 MG VIAL (J0696) As Ordered ONE (15:18)
[2016-10-22] MEDS ORDERED: LIDOCAINE 1% MDV 20ML VIAL As Ordered ONE (15:18)
--- NOTE | 2016-10-22 15:44 | EDDOCDS ---
Physician Documentation [facility] Name: Prabhakar Maik Age: 21 yrs Sex: Male : 1995 Arrival Date: 10/22/2016 Time: 05:02 Bed 13 Private MD: Disposition: 10/22/16 15:09 Discharged to Home/Self Care. Impression: Hematuria, Epididymitis. - Condition is Stable. - Discharge Instructions: Epididymitis, Hematuria, Adult. - Prescriptions for Doxycycline Hyclate 100 mg Oral Tablet - take 1 tablet by ORAL route every 12 hours; 20 tablet. - Medication Reconciliation, Local Pharmacy Hours form. - Follow up: MARLEN Burris; When: 2 - 3 days; Reason: Recheck today's complaints. Follow up: Amber Steve MD; When: 2 - 3 days; Reason: Recheck today's complaints. - Problem is new. - Symptoms have improved. - Notes: You were seen in the ED for blood in the urine after a fall yesterday. Bloodwork showed no acute findings. Urine tests showed blood in the urine. CT scan showed no acute cause of the symptoms. Ultrasound showed epididymitis. Urology recommended a retrograde urethrogram which showed no acute findings. As you are feeling better you may return home. Take the antibiotics as written. Call your primary doctor as well as the Urology clinic to make appointments to be seen this week. Return to the ED for any worsening bleeding, pain, fever, swelling, testicular pain, or any other concerns. Historical: - Allergies: bee allergy; - Home Meds: 1. none - PMHx: Heart Murmur; Sciatica; - PSHx: none; - Social history: Smoking status: Patient states was never smoker of tobacco. No barriers to communication noted, The patient speaks fluent Ukrainian, Speaks appropriately for age. - : The pt / caregiver states he / she is not on anticoagulants. Home medication list is obtained from the patient. - Exposure Risk Screening:: None identified. Vital Signs: 10/22 05:12 BP 147 / 88; Pulse 82; Resp 18; Temp 97.5; Pulse Ox 97% on R/A; Weight 92.99 kg / nn1 205.01 lbs; Height 5 ft. 10 in. (177.80 cm); Pain 7/10; 08:05 BP 137 / 78; Pulse 77; Resp 18; Pulse Ox 99% on R/A; Pain 7/10; jjr 12:08 BP 138 / 98 RA Supine (man/lg); Pulse 78; Resp 18; Pulse Ox 99% on R/A; Pain 7/10; jjr 15:41 BP 145 / 103; Pulse 99; Resp 18; Temp 98.1(O); Pulse Ox 100% on R/A; Pain 6/10; jjr 05:12 Body Mass Index 29.41 (92.99 kg, 177.80 cm) nn1 MDM: 05:55 UA Ordered. EDMS 05:55 Urine Culture Ordered. EDMS 05:55 GC & Chlamydia Amplification Ordered. EDMS 07:06 IV Saline Lock ordered. br1 07:06 Undress patient ordered. br1 07:07 morphine 4 mg IVP once ordered. br1 07:07 Ondansetron 4 mg IVP once ordered. br1 07:07 NS 0.9% 1000 ml IV at 150 mL/hr continuous ordered. br1 07:07 CBC with Diff Ordered. EDMS 07:07 BMP Ordered. EDMS 07:07 Liver Profile Ordered. EDMS 07:07 Lipase Ordered. EDMS 07:08 Scrotal, US Ordered. EDMS 07:08 CT ABD & PELVIS: IV Contrast Only Ordered. EDMS 07:32 DUPLEX SCAN LIMITED (DOPPLER) Ordered. EDMS 08:11 UA Reviewed. br1 08:11 CBC with Diff Reviewed. br1 08:11 Liver Profile Reviewed. br1 08:11 BMP Reviewed. br1 08:11 Lipase Reviewed. br1 08:15 Financial registration complete. lg 09:37 [facility] ordered. br1 10:14 URETHROCYSTOGRAPHY RETRO (RUG) Ordered. EDMS 10:19 [facility] Order complete. lbd 11:14 [facility] [place] was scanned into [employer] and attached to record. lg 13:49 morphine 4 mg IVP once ordered. br1 15:07 cefTRIAXone 250 mg IM once ordered. br1 15:07 Doxycycline 100 mg PO once ordered. br1 Administered Medications: 07:39 Drug: morphine 4 mg [morphine 4 mg/mL intravenous cartridge (1 mL)] Route: IVP; Site: jjr left antecubital; 08:05 Follow up: BP 137 / 78; Pulse 77 bpm; Resp 18 bpm; Pulse Ox 99% RA; Pain 04/11 Adult jjr 07:39 Drug: Ondansetron 4 mg [ondansetron HCl 2 mg/mL intravenous solution (2 mL)] Route: jjr IVP; Site: left antecubital; 07:39 Drug: NS 0.9% 1000 ml [sodium chloride 0.9 % intravenous solution] Route: IV; Rate: 150 jjr mL/hr; Site: left antecubital; 15:44 Follow up: IV Status: Completed infusion; IV Intake: 1000ml jjr 14:08 Drug: morphine 4 mg [morphine 4 mg/mL intravenous cartridge (1 mL)] Route: IVP; Site: jjr left antecubital; 15:24 Drug: cefTRIAXone 250 mg [ceftriaxone 250 mg solution for injection (250 mg)] Route: jjr IM; Site: right gluteus; 15:24 Drug: Doxycycline 100 mg [doxycycline hyclate 100 mg tablet (1 tabs)] Route: PO; jjr Signatures: Dispatcher [employer] EDMS Sheba Méndez, Power Shovel Engineer Unit lbd Alex Philip, Reg Reg lg Ervin Ahmadi MD MD br1 Betina Aparicio RN RN jPage LaresRN RN nn1 The chart was reviewed and I authenticate all verbal orders and agree with the evaluation and treatment provided.Corrections: (The following items were deleted from the chart) 11:48 10:41 [facility] Voiding Cystourethrogram ordered. EDMS EDMS Attachments: 11:14 [facility] [place] lg MTDD
--- NOTE | 2016-10-22 15:44 | EDDOCDS ---
Nurse's Notes [facility], [place] Name: Prabhakar Maki Age: 21 yrs Sex: Male : 1995 Arrival Date: 10/22/2016 Time: 05:02 Bed 13 Private MD: Diagnosis: Hematuria;Epididymitis Presentation: 10/22 05:06 Presenting complaint: Patient states: painful urination since yesterday. Reports blood nn1 in urine. Reports pain in right groin. Adult Sepsis Screening: The patient does not have new or worsening altered mentation. Patient's respiratory rate is less than 22. Systolic blood pressure is greater than 100. Patient has a qSOFA score of 0- Negative Sepsis Screen. Suicide/Homicide risk assessment- the patient denies having any suicidal and/or homicidal ideations and does not present with any other emotional, behavioral or mental health complaints. 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 Transition of care: patient was not received from another setting of care. 05:06 Acuity: MARK Level 3 nn1 05:06 Method Of Arrival: Walkin/Carried/Asstd nn1 Triage Assessment: 05:10 General: Appears in no apparent distress, uncomfortable, Behavior is appropriate for nn1 age, cooperative. Pain: Location: right femoral area, right inguinal area and right iliac crest Pain currently is 7 out of 10 on a pain scale. HIV screening NA for this visit Offered previously. GI: Abdomen is non- distended Reports hematuria. : Reports burning with urination hematuria pain with urination in right groin. Derm: Skin is normal. Historical: - Allergies: bee allergy; - Home Meds: 1. none - PMHx: Heart Murmur; Sciatica; - PSHx: none; - Social history: Smoking status: Patient states was never smoker of tobacco. No barriers to communication noted, The patient speaks fluent Croatian, Speaks appropriately for age. - : The pt / caregiver states he / she is not on anticoagulants. Home medication list is obtained from the patient. - Exposure Risk Screening:: None identified. Screenin:25 Screening information is obtained from the patient. Fall risk: No risks identified. kas2 Assistance ADL's: requires no assistance with activities of daily living. Abuse/DV Screen: The patient / caregiver reports he/she is: not in a situation that causes fear, pain or injury. Nutritional screening: No deficits noted. Advance Directives: Currently, there is no health care proxy. There is no active DNR order. There is a living will, but a copy is not available at this time. There is no Power of Computer Operations Specialist. home support is adequate. Assessment: 05:18 General: Appears in no apparent distress, comfortable, well nourished, well groomed, kas2 Behavior is appropriate for age, cooperative. 05:22 Pain: Location: pelvis and right iliac crest and right inguinal area and right femoral kas2 area Pain currently is 6 out of 10 on a pain scale. Neurological: Level of Consciousness is awake, alert, Oriented to person, place, time. Cardiovascular: Capillary refill < 3 seconds Heart tones S1 S2 present Rhythm is regular. Respiratory: Airway is patent Respiratory effort is even, unlabored, Respiratory pattern is regular, symmetrical. GI: Abdomen is flat, non- distended Bowel sounds present X 4 quads. Abd is soft and non tender X 4 quads. Derm: Skin is intact, Skin is dry, Skin is pink, warm & dry. Skin temperature is warm. 06:22 General: Patient sitting up in bed. States pain is in pelvic area to groin 4/10. No kas2 apparent distress. Call granados within reach. Will continue to monitor.. 07:40 General: Appears in no apparent distress, comfortable, Behavior is appropriate for age. jjr Pain: Location: right testicle Pain currently is 7 out of 10 on a pain scale. Pain radiates to right low back and right lower quadrant Quality of pain is described as sharp, shooting. Neurological: No deficits noted. Respiratory: Airway is patent Respiratory effort is even, unlabored, Respiratory pattern is regular. GI: Denies nausea. Derm: No deficits noted. 08:47 General: Appears in no apparent distress, comfortable, Behavior is appropriate for age. jjr Respiratory: No deficits noted. Derm: No deficits noted. 09:42 General: Appears in no apparent distress, reports right testicular pain improved since jjr arrival, denies needs at this time. 12:08 Adult Sepsis Screening: The patient does not have new or worsening altered mentation. jjr Patient's respiratory rate is less than 22. Systolic blood pressure is greater than 100. Patient has a qSOFA score of 0- Negative Sepsis Screen. General: Appears in no apparent distress, Behavior is appropriate for age, reports irritation to penis due to garcía catheter insertion and continued discomfort to right testicle. 13:46 General: Appears in no apparent distress, no change in right testicular pain, lunch jjr provided. 15:24 General: Appears in no apparent distress, Behavior is appropriate for age. jjr 15:42 Pain: Location: right testicle Pain currently is 6 out of 10 on a pain scale. jjr Vital Signs: 05:12 BP 147 / 88; Pulse 82; Resp 18; Temp 97.5; Pulse Ox 97% on R/A; Weight 92.99 kg; Height nn1 5 ft. 10 in. (177.80 cm); Pain 7/10; 08:05 BP 137 / 78; Pulse 77; Resp 18; Pulse Ox 99% on R/A; Pain 7/10; jjr 12:08 BP 138 / 98 RA Supine (man/lg); Pulse 78; Resp 18; Pulse Ox 99% on R/A; Pain 7/10; jjr 15:41 BP 145 / 103; Pulse 99; Resp 18; Temp 98.1(O); Pulse Ox 100% on R/A; Pain 6/10; jjr 05:12 Body Mass Index 29.41 (92.99 kg, 177.80 cm) nn1 Vitals: 05:12 Log In Time: October 22, 2016 at 05:03. nn1 ED Course: 05:03 Patient visited by Denise Stahl Reg. hs2 05:03 Patient moved to Waiting hs2 05:08 Triage Initiated nn1 05:14 Melina IrvinRN is Primary Nurse. nn1 05:14 Greta Chavez RN is Primary Nurse. nn1 05:14 Patient moved to 13 nn1 05:17 Patient visited by Greta Chavez RN. kas2 05:25 Patient visited by Greta Chavez RN. kas2 06:09 Patient visited by Greta Chavez RN. kas2 06:09 GC & Chlamydia Amplification Sent. kas2 06:09 Urine Culture Sent. kas2 06:09 UA Sent. kas2 06:47 Patient visited by Greta Chavez RN. kas2 06:57 Ervin Ahmadi MD is Attending Physician. br1 07:00 Primary Nurse role handed off by Greta Chavez RN kas2 07:06 Patient visited by Ervin Ahmadi MD. br1 07:29 CBC with Diff Sent. jjr 07:29 BMP Sent. jjr 07:29 Liver Profile Sent. jjr 07:29 Lipase Sent. jjr 07:39 Patient moved to Ultrasound eg2 07:40 Inserted saline lock: 20 gauge in left antecubital area and blood collected. Labs jjr drawn. (by ED staff). Sent per order to lab. 07:41 Patient visited by Betina Aparicio RN. jjr 07:41 Betina Aparicio, RN is Primary Nurse. jjr 07:41 Primary Nurse role handed off by Melina Irvin RN jjr 07:56 Patient moved to 13 eg2 08:47 Patient visited by Betina Aparicio RN. jjr 09:00 Scrotal, US Returned. EDMS 09:43 Patient visited by Betina Aparicio RN. jjr 09:44 CT ABD & PELVIS: IV Contrast Only Returned. EDMS 11:14 [facility] Payment Agreement was scanned into theScore and attached to record. lg 11:53 Patient moved to Radiology jjr 12:08 Patient moved to 13 jjr 12:09 Patient visited by Betina Aparicio RN. jjr 13:46 Patient visited by Betina Aparicio RN. jjr 15:04 Patient visited by Ervin Ahmadi MD. br1 15:09 [place] Tin is Referral Physician. br1 15:09 Amber Steve MD is Referral Physician. br1 15:42 Discontinued lock intact, bleeding controlled, pressure dressing applied, No jjr redness/swelling at site. No procedures done that require assistance. 15:43 The patient / caregiver is instructed regarding the plan of care and ED course. jjr Administered Medications: 07:39 Drug: morphine 4 mg [morphine 4 mg/mL intravenous cartridge (1 mL)] Route: IVP; Site: jjr left antecubital; 08:05 Follow up: BP 137 / 78; Pulse 77 bpm; Resp 18 bpm; Pulse Ox 99% RA; Pain 7/10 Adult jjr 07:39 Drug: Ondansetron 4 mg [ondansetron HCl 2 mg/mL intravenous solution (2 mL)] Route: jjr IVP; Site: left antecubital; 07:39 Drug: NS 0.9% 1000 ml [sodium chloride 0.9 % intravenous solution] Route: IV; Rate: 150 jjr mL/hr; Site: left antecubital; 15:44 Follow up: IV Status: Completed infusion; IV Intake: 1000ml jjr 14:08 Drug: morphine 4 mg [morphine 4 mg/mL intravenous cartridge (1 mL)] Route: IVP; Site: jjr left antecubital; 15:24 Drug: cefTRIAXone 250 mg [ceftriaxone 250 mg solution for injection (250 mg)] Route: jjr IM; Site: right gluteus; 15:24 Drug: Doxycycline 100 mg [doxycycline hyclate 100 mg tablet (1 tabs)] Route: PO; jjr Intake: 15:44 IV: 1000.00ml; Total: 1000.00ml. jjr Order Results: Lab Order: UA; SPEC'M 10/22/16 06:07 Test: APPEARANCE, URINE; Value: CLOUDY; Range: CLEAR; Abnormal: Above high normal; Status: F Test: COLOR, URINE; Value: YELLOW; Range: YELLOW; Status: F Test: PH,URINE; Value: 5.0; Range: 5.0-9.0; Units: UNITS; Status: F Test: SPECIFIC GRAVITY URINE AUTO; Value: 1.030; Range: 1.002-1.035; Status: F Test: PROTEIN, URINE AUTO; Value: 1+; Range: NEGATIVE; Abnormal: Above high normal; Units: mg/dL; Status: F Test: GLUCOSE, URINE (UA) AUTO; Value: NEGATIVE; Range: NEGATIVE; Units: mg/dL; Status: F Test: KETONE, URINE AUTO; Value: NEGATIVE; Range: NEGATIVE; Units: mg/dL; Status: F Test: UROBILINOGEN, URINE AUTO; Value: 0.2; Range: 0.0-2.0; Units: mg/dL; Status: F Test: BILIRUBIN, URINE AUTO; Value: NEGATIVE; Range: NEGATIVE; Status: F Test: NITRITE, URINE AUTO; Value: NEGATIVE; Range: NEGATIVE; Status: F Test: LEUKOCYTE ESTERASE, URINE AUTO; Value: NEGATIVE; Range: NEGATIVE; Status: F Test: BLOOD, URINE BLOOD; Value: 3+; Range: NEGATIVE; Abnormal: Above high normal; Status: F Test: WBC, URINE AUTO; Value: 2; Range: 0-3; Units: /HPF; Status: F Test: RBC, URINE AUTO; Value: TNTC; Range: 0-3; Abnormal: Above high normal; Units: /HPF; Status: F Test: BACTERIA, URINE AUTO; Value: NEGATIVE; Range: NEGATIVE; Status: F Test: SQUAMOUS EPITHELIAL CELL UR AU; Value: 0; Range: 0-6; Units: /HPF; Status: F Test: MUCUS, URINE; Value: SMALL; Range: NEGATIVE; Status: F Test: HYALINE CAST, URINE AUTO; Value: 0; Range: 0-1; Units: /LPF; Status: F Lab Order: GC & Chlamydia Amplification; SPEC'M 10/22/16 06:07 Test: CHLAMYDIA DNA AMPLIFICATION; Value: NEGATIVE; Range: NEGATIVE; Status: F Test: GC DNA AMPLIFICATION; Value: NEGATIVE; Range: NEGATIVE; Status: F Lab Order: CBC with Diff; SPEC'M 10/22/16 07:26 Test: WHITE BLOOD COUNT; Value: 6.1; Range: 4.0-10.0; Units: K/mm3; Status: F Test: RED BLOOD COUNT; Value: 5.21; Range: 4.30-6.10; Units: M/mm3; Status: F Test: HEMOGLOBIN; Value: 14.4; Range: 14.0-18.0; Units: g/dl; Status: F Test: HEMATOCRIT; Value: 44.8; Range: 42.0-52.0; Units: %; Status: F Test: MEAN CORPUSCULAR VOLUME; Value: 85.9; Range: 80.0-96.0; Units: fl; Status: F Test: MEAN CORPUSCULAR HEMOGLOBIN; Value: 27.6; Range: 27.0-33.0; Units: pg; Status: F Test: MEAN CORPUSCULAR HGB CONC; Value: 32.1; Range: 32.0-36.5; Units: g/dl; Status: F Test: RED CELL DISTRIBUTION WIDTH; Value: 13.1; Range: 11.5-14.5; Units: %; Status: F Test: PLATELET COUNT, AUTOMATED; Value: 221; Range: 150-450; Units: k/mm3; Status: F Test: NEUTROPHILS %; Value: 66.3; Range: 36.0-66.0; Abnormal: Above high normal; Units: %; Status: F Test: LYMPH %; Value: 22.2; Range: 24.0-44.0; Abnormal: Below low normal; Units: %; Status: F Test: MONO %; Value: 6.4; Range: 0.0-5.0; Abnormal: Above high normal; Units: %; Status: F Test: EOS %; Value: 1.6; Range: 0.0-3.0; Units: %; Status: F Test: BASO %; Value: 1.9; Range: 0.0-1.0; Abnormal: Above high normal; Units: %; Status: F Test: LARGE UNSTAINED CELL %; Value: 1.5; Range: 0.0-4.0; Units: %; Status: F Test: NEUTROPHILS #; Value: 4.1; Range: 1.8-7.7; Units: K/mm3; Status: F Test: LYMPH #; Value: 1.5; Range: 1.5-6.5; Units: K/mm3; Status: F Test: MONO #; Value: 0.4; Range: 0.0-0.8; Units: K/mm3; Status: F Test: EOS #; Value: 0.1; Range: 0.0-0.50; Units: K/mm3; Status: F Test: BASO #; Value: 0.1; Range: 0.0-0.2; Units: K/mm3; Status: F Test: LARGE UNSTAINED CELL #; Value: 0.1; Range: 0.0-0.4; Units: K/mm3; Status: F Lab Order: [facility]; SPEC'M 10/22/16 07:26 Test: GLUCOSE, FASTING; Value: 90; Range: 70-105; Units: MG/DL; Status: F Test: BLOOD UREA NITROGEN; Value: 18; Range: 7-18; Units: MG/DL; Status: F Test: CREATININE FOR GFR; Value: 1.23; Range: 0.70-1.30; Units: MG/DL; Status: F Test: GLOMERULAR FILTRATION RATE; Value: > 60.0; Range: >60; Status: F Test: SODIUM LEVEL; Value: 140; Range: 136-145; Units: MEQ/L; Status: F Test: POTASSIUM SERUM; Value: 3.5; Range: 3.5-5.1; Units: MEQ/L; Status: F Test: CHLORIDE LEVEL; Value: 105; Range: 98-107; Units: MEQ/L; Status: F Test: CARBON DIOXIDE LEVEL; Value: 27; Range: 21-32; Units: MEQ/L; Status: F Test: ANION GAP; Value: 8; Range: 8-16; Units: MEQ/L; Status: F Test: CALCIUM LEVEL; Value: 9.2; Range: 8.5-10.1; Units: MG/DL; Status: F Test Note: ; Units are mL/min/1.73 m2 Chronic Kidney Disease Staging per NKF: Stage I & II GFR >=60 Normal to Mildly Decreased Stage III GFR 30-59 Moderately Decreased Stage IV GFR 15-29 Severely Decreased Stage V GFR <15 Very Little GFR Left ESRD GFR <15 on [employer] Lab Order: Liver Profile; SPEC'M 10/22/16 07:26 Test: AST/SGOT; Value: 15; Range: 15-37; Units: U/L; Status: F Test: ALT/SGPT; Value: 25; Range: 12-78; Units: U/L; Status: F Test: ALKALINE PHOSPHATASE; Value: 69; Range: 45-117; Units: U/L; Status: F Test: BILIRUBIN,TOTAL; Value: 1.4; Range: 0.2-1.0; Abnormal: Above high normal; Units: MG/DL; Status: F Test: BILIRUBIN,DIRECT; Value: 0.3; Range: 0.0-0.2; Abnormal: Above high normal; Units: MG/DL; Status: F Test: TOTAL PROTEIN; Value: 8.0; Range: 6.4-8.2; Units: GM/DL; Status: F Test: ALBUMIN; Value: 4.1; Range: 3.2-5.2; Units: GM/DL; Status: F Test: ALBUMIN/GLOBULIN RATIO; Value: 1.05; Range: 1.00-1.93; Status: F Lab Order: Lipase; SPEC'M 10/22/16 07:26 Test: LIPASE; Value: 131; Range: 73-393; Units: U/L; Status: F Radiology Order: CT ABD & PELVIS: IV Contrast Only Test: CT ABD & PELVIS: IV Contrast Only REASON FOR EXAMINATION: RLQ pain hematuria;Trauma; CT ABDOMEN AND PELVIS WITH IV CONTRAST: 10/22/2016; ; INDICATION: Right lower quadrant pain, hematuria; trauma.; ; COMPARISON: CT of the pelvis 03/06/2015 without contrast.; ; TECHNIQUE: Following IV contrast injection with 100 mL Isovue 370 mg/mL IV, 3; mm spiral axial sections were performed through the abdomen and pelvis.; ; FINDINGS: There is mild diffuse fatty infiltration of liver. Spleen, pancreas,; gallbladder are unremarkable. There is no biliary dilatation. Adrenal glands; are normal. Kidneys are without hydronephrosis or obstructing ureteral calculi; bilaterally. There is no perinephric stranding or perinephric hematoma. The; ureters are of normal course and caliber. The stomach is contracted. Small; bowel is without obstruction. The appendix is visualized and without; inflammation. Abdominal aorta is of normal course and caliber. There are no; pathologically enlarged retroperitoneal nodes and there is no perinephric; hematoma. A few ileocolic lymph nodes are identified in the right lower; quadrant, largest 8 mm transverse dimension, likely reactive in etiology.; ; Bladder is underdistended yet unremarkable in appearance. Prostate is not; enlarged. There is moderate retained stool within the colon with sparing of the; transverse colon there is no free air or ascites.; ; Visualized portions of the lower thoracic spine, lumbosacral spine, bony pelvis; and hips are without fracture or pelvic diastases.; ; IMPRESSION:; 1. Mild diffuse fatty infiltration of liver.; 2. Few subcentimeter nonspecific ileocolic lymph nodes in the right lower; quadrant, likely reactive in etiology.; 3. No acute intra-abdominal or pelvic pathology.; 4. Visualized portions of lower thoracic, lumbosacral spine, pelvis and hips; without fracture or displacement.; ; ; ; Unreviewed; Radiology Order: Scrotal, US Test: Scrotal, US REASON FOR EXAMINATION: right testicular pain r/o torsion; Scrotal ultrasound 10/22/2016 indication right testicular pain, exclude torsion,; 21 neural male; ; Comparison: None; ; Findings: It is to a technique: Color-flow Doppler spectral wave Doppler; vasquez-scale imaging used to evaluate the testicles/scrotum; ; Findings: Right testicle measures 4.9 x 2.2 x 3.2 cm. Left testicle measures; 4.8 x 2.4 x 3.2 cm. The testes are of homogeneous echotexture bilaterally.; There are no intratesticular masses or cysts. There is symmetric perfusion to; the bilateral testes therefore no evidence of torsion; ; Right epididymal head is 9.9 mm in length. Left epididymal head 9.9 mm in length; and contains a 1.5 cm epididymal head cyst.. There is increased perfusion; /hyperemia to the bilateral epididymal heads and epididymal tails system with; bilateral epididymitis.; ; There are no hydroceles; ; Impression:; ; Bilateral epididymitis, mild to moderate; ; Testes without masses or torsion bilaterally.; ; 1.5 mm left epididymal head cyst; ; ; Signed by; Mariah Guillen MD 10/22/2016 08:32 A; Outcome: 15:09 Discharge ordered by Provider. br1 15:42 Discharge Assessment: patient administered narcotics - yes. Pt provided with safe jjr discharge. The following High Risk Discharge criteria are identified: None. Discharged to home ambulatory, with friend. Condition: stable. Discharge instructions given to patient, Instructed on discharge instructions, follow up and referral plans. medication usage, Demonstrated understanding of instructions, medications, Prescriptions given X 1. CT Study completed. Ultrasound Study completed. Property sent home with patient. 15:43 Patient left the ED. jjr Signatures: Dispatcher [employer] EDWI Alex Philip, Reg Reg lg Kalie Ward eg2 Ervin Ahmadi MD MD br1 Betina Aparicio, RN RN Page Gordillo RN RN nn1 Denise Stahl, Reg Reg hs2 Greta ChavezRN RN kas2 MTDD
--- NOTE | 2016-10-22 18:53 | REP ---
RETROGRADE URETHROGRAM: The procedure was performed under the personal supervision of Dr. Ybarra. Using sterile technique a #10-Honduran catheter was inserted into the tip of penis. The balloon was inflated to 1 mL Approximately 20 mL of Cysto-Conray 2 was instilled in a retrograde flow. There is no evidence of stricture or extravasation. The bladder is densely opacified from the patient's previous CAT scan. This was used to complete a Cystogram. The bladder is normal in position and contour. There is no intrinsic or extrinsic mass effect on the bladder. There is no evidence of extravasation. The patient was able to void on the table. Again there is no evidence of stricture or extravasation. Post-void film shows mild post void residual. IMPRESSION: Normal retrograde urethrogram study. 1 minute and 55 seconds of fluoroscopic time was utilized for this procedure. Reviewed by BAYRON Trevino 10/25/2016 05:13 PEdited and Signed by Reji Ybarra MD 10/25/2016 05:33 P
--- NOTE | 2016-10-24 16:44 | EDDOCDS ---
Nurse's Notes [facility] Name: Prabhakar Maki Age: 21 yrs Sex: Male : 1995 Arrival Date: 10/22/2016 Time: 05:02 Bed 13 Private MD: Diagnosis: Hematuria;Epididymitis Presentation: 10/22 05:06 Presenting complaint: Patient states: painful urination since yesterday. Reports blood nn1 in urine. Reports pain in right groin. Adult Sepsis Screening: The patient does not have new or worsening altered mentation. Patient's respiratory rate is less than 22. Systolic blood pressure is greater than 100. Patient has a qSOFA score of 0- Negative Sepsis Screen. Suicide/Homicide risk assessment- the patient denies having any suicidal and/or homicidal ideations and does not present with any other emotional, behavioral or mental health complaints. 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 Transition of care: patient was not received from another setting of care. 05:06 Acuity: MARK Level 3 nn1 05:06 Method Of Arrival: Walkin/Carried/Asstd nn1 Triage Assessment: 05:10 General: Appears in no apparent distress, uncomfortable, Behavior is appropriate for nn1 age, cooperative. Pain: Location: right femoral area, right inguinal area and right iliac crest Pain currently is 7 out of 10 on a pain scale. HIV screening NA for this visit Offered previously. GI: Abdomen is non- distended Reports hematuria. : Reports burning with urination hematuria pain with urination in right groin. Derm: Skin is normal. Historical: - Allergies: bee allergy; - Home Meds: 1. none - PMHx: Heart Murmur; Sciatica; - PSHx: none; - Social history: Smoking status: Patient states was never smoker of tobacco. No barriers to communication noted, The patient speaks fluent Polish, Speaks appropriately for age. - : The pt / caregiver states he / she is not on anticoagulants. Home medication list is obtained from the patient. - Exposure Risk Screening:: None identified. Screenin:25 Screening information is obtained from the patient. Fall risk: No risks identified. kas2 Assistance ADL's: requires no assistance with activities of daily living. Abuse/DV Screen: The patient / caregiver reports he/she is: not in a situation that causes fear, pain or injury. Nutritional screening: No deficits noted. Advance Directives: Currently, there is no health care proxy. There is no active DNR order. There is a living will, but a copy is not available at this time. There is no Power of Barrel Liner. home support is adequate. Assessment: 05:18 General: Appears in no apparent distress, comfortable, well nourished, well groomed, kas2 Behavior is appropriate for age, cooperative. 05:22 Pain: Location: pelvis and right iliac crest and right inguinal area and right femoral kas2 area Pain currently is 6 out of 10 on a pain scale. Neurological: Level of Consciousness is awake, alert, Oriented to person, place, time. Cardiovascular: Capillary refill < 3 seconds Heart tones S1 S2 present Rhythm is regular. Respiratory: Airway is patent Respiratory effort is even, unlabored, Respiratory pattern is regular, symmetrical. GI: Abdomen is flat, non- distended Bowel sounds present X 4 quads. Abd is soft and non tender X 4 quads. Derm: Skin is intact, Skin is dry, Skin is pink, warm & dry. Skin temperature is warm. 06:22 General: Patient sitting up in bed. States pain is in pelvic area to groin 4/10. No kas2 apparent distress. Call granados within reach. Will continue to monitor.. 07:40 General: Appears in no apparent distress, comfortable, Behavior is appropriate for age. jjr Pain: Location: right testicle Pain currently is 7 out of 10 on a pain scale. Pain radiates to right low back and right lower quadrant Quality of pain is described as sharp, shooting. Neurological: No deficits noted. Respiratory: Airway is patent Respiratory effort is even, unlabored, Respiratory pattern is regular. GI: Denies nausea. Derm: No deficits noted. 08:47 General: Appears in no apparent distress, comfortable, Behavior is appropriate for age. jjr Respiratory: No deficits noted. Derm: No deficits noted. 09:42 General: Appears in no apparent distress, reports right testicular pain improved since jjr arrival, denies needs at this time. 12:08 Adult Sepsis Screening: The patient does not have new or worsening altered mentation. jjr Patient's respiratory rate is less than 22. Systolic blood pressure is greater than 100. Patient has a qSOFA score of 0- Negative Sepsis Screen. General: Appears in no apparent distress, Behavior is appropriate for age, reports irritation to penis due to garcía catheter insertion and continued discomfort to right testicle. 13:46 General: Appears in no apparent distress, no change in right testicular pain, lunch jjr provided. 15:24 General: Appears in no apparent distress, Behavior is appropriate for age. jjr 15:42 Pain: Location: right testicle Pain currently is 6 out of 10 on a pain scale. jjr Vital Signs: 05:12 BP 147 / 88; Pulse 82; Resp 18; Temp 97.5; Pulse Ox 97% on R/A; Weight 92.99 kg; Height nn1 5 ft. 10 in. (177.80 cm); Pain 7/10; 08:05 BP 137 / 78; Pulse 77; Resp 18; Pulse Ox 99% on R/A; Pain 7/10; jjr 12:08 BP 138 / 98 RA Supine (man/lg); Pulse 78; Resp 18; Pulse Ox 99% on R/A; Pain 7/10; jjr 15:41 BP 145 / 103; Pulse 99; Resp 18; Temp 98.1(O); Pulse Ox 100% on R/A; Pain 6/10; jjr 05:12 Body Mass Index 29.41 (92.99 kg, 177.80 cm) nn1 Vitals: 05:12 Log In Time: October 22, 2016 at 05:03. nn1 ED Course: 05:03 Patient visited by Denise Stahl Reg. hs2 05:03 Patient moved to Waiting hs2 05:08 Triage Initiated nn1 05:14 Melina IrvinRN is Primary Nurse. nn1 05:14 Greta Chavez RN is Primary Nurse. nn1 05:14 Patient moved to 13 nn1 05:17 Patient visited by Greta Chavez RN. kas2 05:25 Patient visited by Greta Chavez RN. kas2 06:09 Patient visited by Greta Chavez RN. kas2 06:09 GC & Chlamydia Amplification Sent. kas2 06:09 Urine Culture Sent. kas2 06:09 UA Sent. kas2 06:47 Patient visited by Greta Chavez RN. kas2 06:57 Ervin Ahmadi MD is Attending Physician. br1 07:00 Primary Nurse role handed off by Greta Chavez RN kas2 07:06 Patient visited by Ervin Ahmadi MD. br1 07:29 CBC with Diff Sent. jjr 07:29 BMP Sent. jjr 07:29 Liver Profile Sent. jjr 07:29 Lipase Sent. jjr 07:39 Patient moved to Ultrasound eg2 07:40 Inserted saline lock: 20 gauge in left antecubital area and blood collected. Labs jjr drawn. (by ED staff). Sent per order to lab. 07:41 Patient visited by Betina Aparicio RN. jjr 07:41 Betina Aparicio, RN is Primary Nurse. jjr 07:41 Primary Nurse role handed off by Melina Irvin RN jjr 07:56 Patient moved to 13 eg2 08:47 Patient visited by Betina Aparicio RN. jjr 09:00 Scrotal, US Returned. EDMS 09:43 Patient visited by Betina Aparicio RN. jjr 09:44 CT ABD & PELVIS: IV Contrast Only Returned. EDMS 11:14 [facility] Payment Agreement was scanned into Mingly and attached to record. lg 11:53 Patient moved to Radiology jjr 12:08 Patient moved to 13 jjr 12:09 Patient visited by Betina Aparicio RN. jjr 13:46 Patient visited by Betina Aparicio, JAKY. jjr 15:04 Patient visited by Ervin Ahmadi MD. br1 15:09 [place] Tin is Referral Physician. br1 15:09 Amber Steve MD is Referral Physician. br1 15:42 Discontinued lock intact, bleeding controlled, pressure dressing applied, No jjr redness/swelling at site. No procedures done that require assistance. 15:43 The patient / caregiver is instructed regarding the plan of care and ED course. jjr 19:20 URETHROCYSTOGRAPHY RETRO (RUG) Returned. EDMS 10/23 10:40 T-Sheet-- Draft Copy was scanned into Mingly and attached to record. gb 10:40 Radiology Report was scanned into Mingly and attached to record. gb Administered Medications: 10/22 07:39 Drug: morphine 4 mg [morphine 4 mg/mL intravenous cartridge (1 mL)] Route: IVP; Site: jjr left antecubital; 08:05 Follow up: BP 137 / 78; Pulse 77 bpm; Resp 18 bpm; Pulse Ox 99% RA; Pain 04/11 Adult jjr 07:39 Drug: Ondansetron 4 mg [ondansetron HCl 2 mg/mL intravenous solution (2 mL)] Route: jjr IVP; Site: left antecubital; 07:39 Drug: NS 0.9% 1000 ml [sodium chloride 0.9 % intravenous solution] Route: IV; Rate: 150 jjr mL/hr; Site: left antecubital; 15:44 Follow up: IV Status: Completed infusion; IV Intake: 1000ml jjr 14:08 Drug: morphine 4 mg [morphine 4 mg/mL intravenous cartridge (1 mL)] Route: IVP; Site: jjr left antecubital; 15:24 Drug: cefTRIAXone 250 mg [ceftriaxone 250 mg solution for injection (250 mg)] Route: jjr IM; Site: right gluteus; 15:24 Drug: Doxycycline 100 mg [doxycycline hyclate 100 mg tablet (1 tabs)] Route: PO; jjr Intake: 15:44 IV: 1000.00ml; Total: 1000.00ml. jjr Order Results: Lab Order: UA; SPEC'M 10/22/16 06:07 Test: APPEARANCE, URINE; Value: CLOUDY; Range: CLEAR; Abnormal: Above high normal; Status: F Test: COLOR, URINE; Value: YELLOW; Range: YELLOW; Status: F Test: PH,URINE; Value: 5.0; Range: 5.0-9.0; Units: UNITS; Status: F Test: SPECIFIC GRAVITY URINE AUTO; Value: 1.030; Range: 1.002-1.035; Status: F Test: PROTEIN, URINE AUTO; Value: 1+; Range: NEGATIVE; Abnormal: Above high normal; Units: mg/dL; Status: F Test: GLUCOSE, URINE (UA) AUTO; Value: NEGATIVE; Range: NEGATIVE; Units: mg/dL; Status: F Test: KETONE, URINE AUTO; Value: NEGATIVE; Range: NEGATIVE; Units: mg/dL; Status: F Test: UROBILINOGEN, URINE AUTO; Value: 0.2; Range: 0.0-2.0; Units: mg/dL; Status: F Test: BILIRUBIN, URINE AUTO; Value: NEGATIVE; Range: NEGATIVE; Status: F Test: NITRITE, URINE AUTO; Value: NEGATIVE; Range: NEGATIVE; Status: F Test: LEUKOCYTE ESTERASE, URINE AUTO; Value: NEGATIVE; Range: NEGATIVE; Status: F Test: BLOOD, URINE BLOOD; Value: 3+; Range: NEGATIVE; Abnormal: Above high normal; Status: F Test: WBC, URINE AUTO; Value: 2; Range: 0-3; Units: /HPF; Status: F Test: RBC, URINE AUTO; Value: TNTC; Range: 0-3; Abnormal: Above high normal; Units: /HPF; Status: F Test: BACTERIA, URINE AUTO; Value: NEGATIVE; Range: NEGATIVE; Status: F Test: SQUAMOUS EPITHELIAL CELL UR AU; Value: 0; Range: 0-6; Units: /HPF; Status: F Test: MUCUS, URINE; Value: SMALL; Range: NEGATIVE; Status: F Test: HYALINE CAST, URINE AUTO; Value: 0; Range: 0-1; Units: /LPF; Status: F Lab Order: Urine Culture; SPEC'M 10/22/16 06:07 Test: URINE CULTURE; Value: URINE CULTURE RESULT NO GROWTH; Status: F Lab Order: GC & Chlamydia Amplification; SPEC'M 10/22/16 06:07 Test: CHLAMYDIA DNA AMPLIFICATION; Value: NEGATIVE; Range: NEGATIVE; Status: F Test: GC DNA AMPLIFICATION; Value: NEGATIVE; Range: NEGATIVE; Status: F Lab Order: CBC with Diff; SPEC'M 10/22/16 07:26 Test: WHITE BLOOD COUNT; Value: 6.1; Range: 4.0-10.0; Units: K/mm3; Status: F Test: RED BLOOD COUNT; Value: 5.21; Range: 4.30-6.10; Units: M/mm3; Status: F Test: HEMOGLOBIN; Value: 14.4; Range: 14.0-18.0; Units: g/dl; Status: F Test: HEMATOCRIT; Value: 44.8; Range: 42.0-52.0; Units: %; Status: F Test: MEAN CORPUSCULAR VOLUME; Value: 85.9; Range: 80.0-96.0; Units: fl; Status: F Test: MEAN CORPUSCULAR HEMOGLOBIN; Value: 27.6; Range: 27.0-33.0; Units: pg; Status: F Test: MEAN CORPUSCULAR HGB CONC; Value: 32.1; Range: 32.0-36.5; Units: g/dl; Status: F Test: RED CELL DISTRIBUTION WIDTH; Value: 13.1; Range: 11.5-14.5; Units: %; Status: F Test: PLATELET COUNT, AUTOMATED; Value: 221; Range: 150-450; Units: k/mm3; Status: F Test: NEUTROPHILS %; Value: 66.3; Range: 36.0-66.0; Abnormal: Above high normal; Units: %; Status: F Test: LYMPH %; Value: 22.2; Range: 24.0-44.0; Abnormal: Below low normal; Units: %; Status: F Test: MONO %; Value: 6.4; Range: 0.0-5.0; Abnormal: Above high normal; Units: %; Status: F Test: EOS %; Value: 1.6; Range: 0.0-3.0; Units: %; Status: F Test: BASO %; Value: 1.9; Range: 0.0-1.0; Abnormal: Above high normal; Units: %; Status: F Test: LARGE UNSTAINED CELL %; Value: 1.5; Range: 0.0-4.0; Units: %; Status: F Test: NEUTROPHILS #; Value: 4.1; Range: 1.8-7.7; Units: K/mm3; Status: F Test: LYMPH #; Value: 1.5; Range: 1.5-6.5; Units: K/mm3; Status: F Test: MONO #; Value: 0.4; Range: 0.0-0.8; Units: K/mm3; Status: F Test: EOS #; Value: 0.1; Range: 0.0-0.50; Units: K/mm3; Status: F Test: BASO #; Value: 0.1; Range: 0.0-0.2; Units: K/mm3; Status: F Test: LARGE UNSTAINED CELL #; Value: 0.1; Range: 0.0-0.4; Units: K/mm3; Status: F Lab Order: [facility]; SPEC'M 10/22/16 07:26 Test: GLUCOSE, FASTING; Value: 90; Range: 70-105; Units: MG/DL; Status: F Test: BLOOD UREA NITROGEN; Value: 18; Range: 7-18; Units: MG/DL; Status: F Test: CREATININE FOR GFR; Value: 1.23; Range: 0.70-1.30; Units: MG/DL; Status: F Test: GLOMERULAR FILTRATION RATE; Value: > 60.0; Range: >60; Status: F Test: SODIUM LEVEL; Value: 140; Range: 136-145; Units: MEQ/L; Status: F Test: POTASSIUM SERUM; Value: 3.5; Range: 3.5-5.1; Units: MEQ/L; Status: F Test: CHLORIDE LEVEL; Value: 105; Range: 98-107; Units: MEQ/L; Status: F Test: CARBON DIOXIDE LEVEL; Value: 27; Range: 21-32; Units: MEQ/L; Status: F Test: ANION GAP; Value: 8; Range: 8-16; Units: MEQ/L; Status: F Test: CALCIUM LEVEL; Value: 9.2; Range: 8.5-10.1; Units: MG/DL; Status: F Test Note: ; Units are mL/min/1.73 m2 Chronic Kidney Disease Staging per NKF: Stage I & II GFR >=60 Normal to Mildly Decreased Stage III GFR 30-59 Moderately Decreased Stage IV GFR 15-29 Severely Decreased Stage V GFR <15 Very Little GFR Left ESRD GFR <15 on [employer] Lab Order: Liver Profile; [facility] 10/22/16 07:26 Test: AST/SGOT; Value: 15; Range: 15-37; Units: U/L; Status: F Test: ALT/SGPT; Value: 25; Range: 12-78; Units: U/L; Status: F Test: ALKALINE PHOSPHATASE; Value: 69; Range: 45-117; Units: U/L; Status: F Test: BILIRUBIN,TOTAL; Value: 1.4; Range: 0.2-1.0; Abnormal: Above high normal; Units: MG/DL; Status: F Test: BILIRUBIN,DIRECT; Value: 0.3; Range: 0.0-0.2; Abnormal: Above high normal; Units: MG/DL; Status: F Test: TOTAL PROTEIN; Value: 8.0; Range: 6.4-8.2; Units: GM/DL; Status: F Test: ALBUMIN; Value: 4.1; Range: 3.2-5.2; Units: GM/DL; Status: F Test: ALBUMIN/GLOBULIN RATIO; Value: 1.05; Range: 1.00-1.93; Status: F Lab Order: Lipase; SPEC'M 10/22/16 07:26 Test: LIPASE; Value: 131; Range: 73-393; Units: U/L; Status: F Radiology Order: CT ABD & PELVIS: IV Contrast Only Test: CT ABD & PELVIS: IV Contrast Only REASON FOR EXAMINATION: RLQ pain hematuria;Trauma; CT ABDOMEN AND PELVIS WITH IV CONTRAST: 10/22/2016; ; INDICATION: Right lower quadrant pain, hematuria; trauma.; ; COMPARISON: CT of the pelvis 03/06/2015 without contrast.; ; TECHNIQUE: Following IV contrast injection with 100 mL Isovue 370 mg/mL IV, 3; mm spiral axial sections were performed through the abdomen and pelvis.; ; FINDINGS: There is mild diffuse fatty infiltration of liver. Spleen, pancreas,; gallbladder are unremarkable. There is no biliary dilatation. Adrenal glands; are normal. Kidneys are without hydronephrosis or obstructing ureteral calculi; bilaterally. There is no perinephric stranding or perinephric hematoma. The; ureters are of normal course and caliber. The stomach is contracted. Small; bowel is without obstruction. The appendix is visualized and without; inflammation. Abdominal aorta is of normal course and caliber. There are no; pathologically enlarged retroperitoneal nodes and there is no perinephric; hematoma. A few ileocolic lymph nodes are identified in the right lower; quadrant, largest 8 mm transverse dimension, likely reactive in etiology.; ; Bladder is underdistended yet unremarkable in appearance. Prostate is not; enlarged. There is moderate retained stool within the colon with sparing of the; transverse colon there is no free air or ascites.; ; Visualized portions of the lower thoracic spine, lumbosacral spine, bony pelvis; and hips are without fracture or pelvic diastases.; ; IMPRESSION:; 1. Mild diffuse fatty infiltration of liver.; 2. Few subcentimeter nonspecific ileocolic lymph nodes in the right lower; quadrant, likely reactive in etiology.; 3. No acute intra-abdominal or pelvic pathology.; 4. Visualized portions of lower thoracic, lumbosacral spine, pelvis and hips; without fracture or displacement.; ; ; ; Unreviewed; Radiology Order: Scrotal, US Test: Scrotal, US REASON FOR EXAMINATION: right testicular pain r/o torsion; Scrotal ultrasound 10/22/2016 indication right testicular pain, exclude torsion,; 21 neural male; ; Comparison: None; ; Findings: It is to a technique: Color-flow Doppler spectral wave Doppler; vasquez-scale imaging used to evaluate the testicles/scrotum; ; Findings: Right testicle measures 4.9 x 2.2 x 3.2 cm. Left testicle measures; 4.8 x 2.4 x 3.2 cm. The testes are of homogeneous echotexture bilaterally.; There are no intratesticular masses or cysts. There is symmetric perfusion to; the bilateral testes therefore no evidence of torsion; ; Right epididymal head is 9.9 mm in length. Left epididymal head 9.9 mm in length; and contains a 1.5 cm epididymal head cyst.. There is increased perfusion; /hyperemia to the bilateral epididymal heads and epididymal tails system with; bilateral epididymitis.; ; There are no hydroceles; ; Impression:; ; Bilateral epididymitis, mild to moderate; ; Testes without masses or torsion bilaterally.; ; 1.5 mm left epididymal head cyst; ; ; Signed by; Mariah Guillen MD 10/22/2016 08:32 A; Radiology Order: URETHROCYSTOGRAPHY RETRO (RUG) Test: URETHROCYSTOGRAPHY RETRO (RUG) REASON FOR EXAMINATION: BLOOD IN URINE (RETROGRADE URETHROGRAM WITH CYSTOGRAM); RETROGRADE URETHROGRAM:; ; The procedure was performed under the personal supervision of Dr. Ybarra.; ; Using sterile technique a #10-[place] catheter was inserted into the tip of penis.; The balloon was inflated to 1 mL. Approximately 20 mL of Cysto-Conray 2 was; instilled in a retrograde flow. There is no evidence of stricture or; extravasation. The bladder is densely opacified from the patient's previous CAT; scan. This was used to complete a Cystogram. The bladder was normal in position; and contour. There is no intrinsic or extrinsic mass effect on the bladder. There; is no evidence of extravasation. The patient was able to void on the table. Again; there is no evidence of stricture or extravasation. Post-void film shows mild; post void residual.; ; IMPRESSION:; Normal retrograde urethrogram study.; ; 1 minute and 55 seconds of fluoroscopic time was utilized for this procedure.; Outcome: 15:09 Discharge ordered by Provider. br1 15:42 Discharge Assessment: patient administered narcotics - yes. Pt provided with safe jjr discharge. The following High Risk Discharge criteria are identified: None. Discharged to home ambulatory, with friend. Condition: stable. Discharge instructions given to patient, Instructed on discharge instructions, follow up and referral plans. medication usage, Demonstrated understanding of instructions, medications, Prescriptions given X 1. CT Study completed. Ultrasound Study completed. Property sent home with patient. 15:43 Patient left the ED. jjr Signatures: Dispatcher [employer] EDMS Smita Day, Reg Reg gb Alex Philip, Reg Reg lg Kalie Ward eg2 Ervin Ahmadi MD MD br1 Betina Aparicio RN RN Page GordilloRN RN nn1 Denise Stahl, Reg Reg hs2 Greta ChavezRN RN kas2 Chart Complete [facility]
--- NOTE | 2016-10-24 16:44 | EDDOCDS ---
Physician Documentation [facility] Name: Prabhakar Maki Age: 21 yrs Sex: Male : 1995 Arrival Date: 10/22/2016 Time: 05:02 Bed 13 Private MD: Disposition: 10/22/16 15:09 Discharged to Home/Self Care. Impression: Hematuria, Epididymitis. - Condition is Stable. - Discharge Instructions: Epididymitis, Hematuria, Adult. - Prescriptions for Doxycycline Hyclate 100 mg Oral Tablet - take 1 tablet by ORAL route every 12 hours; 20 tablet. - Medication Reconciliation, Local Pharmacy Hours form. - Follow up: MARLEN Burris; When: 2 - 3 days; Reason: Recheck today's complaints. Follow up: Amber Steve MD; When: 2 - 3 days; Reason: Recheck today's complaints. - Problem is new. - Symptoms have improved. - Notes: You were seen in the ED for blood in the urine after a fall yesterday. Bloodwork showed no acute findings. Urine tests showed blood in the urine. CT scan showed no acute cause of the symptoms. Ultrasound showed epididymitis. Urology recommended a retrograde urethrogram which showed no acute findings. As you are feeling better you may return home. Take the antibiotics as written. Call your primary doctor as well as the Urology clinic to make appointments to be seen this week. Return to the ED for any worsening bleeding, pain, fever, swelling, testicular pain, or any other concerns. Historical: - Allergies: bee allergy; - Home Meds: 1. none - PMHx: Heart Murmur; Sciatica; - PSHx: none; - Social history: Smoking status: Patient states was never smoker of tobacco. No barriers to communication noted, The patient speaks fluent Upper Sorbian, Speaks appropriately for age. - : The pt / caregiver states he / she is not on anticoagulants. Home medication list is obtained from the patient. - Exposure Risk Screening:: None identified. Vital Signs: 10/22 05:12 BP 147 / 88; Pulse 82; Resp 18; Temp 97.5; Pulse Ox 97% on R/A; Weight 92.99 kg / nn1 205.01 lbs; Height 5 ft. 10 in. (177.80 cm); Pain 7/10; 08:05 BP 137 / 78; Pulse 77; Resp 18; Pulse Ox 99% on R/A; Pain 7/10; jjr 12:08 BP 138 / 98 RA Supine (man/lg); Pulse 78; Resp 18; Pulse Ox 99% on R/A; Pain 7/10; jjr 15:41 BP 145 / 103; Pulse 99; Resp 18; Temp 98.1(O); Pulse Ox 100% on R/A; Pain 6/10; jjr 05:12 Body Mass Index 29.41 (92.99 kg, 177.80 cm) nn1 MDM: 05:55 UA Ordered. EDMS 05:55 Urine Culture Ordered. EDMS 05:55 GC & Chlamydia Amplification Ordered. EDMS 07:06 IV Saline Lock ordered. br1 07:06 Undress patient ordered. br1 07:07 morphine 4 mg IVP once ordered. br1 07:07 Ondansetron 4 mg IVP once ordered. br1 07:07 NS 0.9% 1000 ml IV at 150 mL/hr continuous ordered. br1 07:07 CBC with Diff Ordered. EDMS 07:07 BMP Ordered. EDMS 07:07 Liver Profile Ordered. EDMS 07:07 Lipase Ordered. EDMS 07:08 Scrotal, US Ordered. EDMS 07:08 CT ABD & PELVIS: IV Contrast Only Ordered. EDMS 07:32 DUPLEX SCAN LIMITED (DOPPLER) Ordered. EDMS 08:11 UA Reviewed. br1 08:11 CBC with Diff Reviewed. br1 08:11 Liver Profile Reviewed. br1 08:11 BMP Reviewed. br1 08:11 Lipase Reviewed. br1 08:15 Financial registration complete. lg 09:37 [facility] Credit Control Clerk Order ordered. br1 10:14 URETHROCYSTOGRAPHY RETRO (RUG) Ordered. EDMS 10:19 [facility] Credit Control Clerk Order complete. lbd 11:14 [facility] [place] was scanned into [employer] and attached to record. lg 13:49 morphine 4 mg IVP once ordered. br1 15:07 cefTRIAXone 250 mg IM once ordered. br1 15:07 Doxycycline 100 mg PO once ordered. br1 10/23 10:40 T-Sheet-- Draft Copy was scanned into [employer] and attached to record. gb 10:40 Radiology Report was scanned into [employer] and attached to record. gb Administered Medications: 10/22 07:39 Drug: morphine 4 mg [morphine 4 mg/mL intravenous cartridge (1 mL)] Route: IVP; Site: jjr left antecubital; 08:05 Follow up: BP 137 / 78; Pulse 77 bpm; Resp 18 bpm; Pulse Ox 99% RA; Pain 04/11 Adult jjr 07:39 Drug: Ondansetron 4 mg [ondansetron HCl 2 mg/mL intravenous solution (2 mL)] Route: jjr IVP; Site: left antecubital; 07:39 Drug: NS 0.9% 1000 ml [sodium chloride 0.9 % intravenous solution] Route: IV; Rate: 150 jjr mL/hr; Site: left antecubital; 15:44 Follow up: IV Status: Completed infusion; IV Intake: 1000ml jjr 14:08 Drug: morphine 4 mg [morphine 4 mg/mL intravenous cartridge (1 mL)] Route: IVP; Site: jjr left antecubital; 15:24 Drug: cefTRIAXone 250 mg [ceftriaxone 250 mg solution for injection (250 mg)] Route: jjr IM; Site: right gluteus; 15:24 Drug: Doxycycline 100 mg [doxycycline hyclate 100 mg tablet (1 tabs)] Route: PO; jjr Signatures: Dispatcher MedHost EDMS Sheba Méndez, [facility] [employer] lbd Smita Day, Reg Reg gb Alex Philip, Reg Reg lg Ervin Ahmadi MD MD br1 Betina Aparicio RN RN jPage LaresRN RN nn1 The chart was reviewed and I authenticate all verbal orders and agree with the evaluation and treatment provided.Corrections: (The following items were deleted from the chart) 11:48 10:41 [facility] Voiding Cystourethrogram ordered. EDMS EDMS Attachments: 11:14 [facility] Payment Agreement lg 10/23 10:40 T-Sheet-- Draft Copy gb Chart Complete MTDD
--- NOTE | 2016-10-24 16:44 | EDDOCDS ---
Physician Documentation [facility] Name: Prabhakar Maki Age: 21 yrs Sex: Male : 1995 Arrival Date: 10/22/2016 Time: 05:02 Bed 13 Private MD: Disposition: 10/22/16 15:09 Discharged to Home/Self Care. Impression: Hematuria, Epididymitis. - Condition is Stable. - Discharge Instructions: Epididymitis, Hematuria, Adult. - Prescriptions for Doxycycline Hyclate 100 mg Oral Tablet - take 1 tablet by ORAL route every 12 hours; 20 tablet. - Medication Reconciliation, Local Pharmacy Hours form. - Follow up: MARLEN Burris; When: 2 - 3 days; Reason: Recheck today's complaints. Follow up: Amber Steve MD; When: 2 - 3 days; Reason: Recheck today's complaints. - Problem is new. - Symptoms have improved. - Notes: You were seen in the ED for blood in the urine after a fall yesterday. Bloodwork showed no acute findings. Urine tests showed blood in the urine. CT scan showed no acute cause of the symptoms. Ultrasound showed epididymitis. Urology recommended a retrograde urethrogram which showed no acute findings. As you are feeling better you may return home. Take the antibiotics as written. Call your primary doctor as well as the Urology clinic to make appointments to be seen this week. Return to the ED for any worsening bleeding, pain, fever, swelling, testicular pain, or any other concerns. Historical: - Allergies: bee allergy; - Home Meds: 1. none - PMHx: Heart Murmur; Sciatica; - PSHx: none; - Social history: Smoking status: Patient states was never smoker of tobacco. No barriers to communication noted, The patient speaks fluent Georgian, Speaks appropriately for age. - : The pt / caregiver states he / she is not on anticoagulants. Home medication list is obtained from the patient. - Exposure Risk Screening:: None identified. Vital Signs: 10/22 05:12 BP 147 / 88; Pulse 82; Resp 18; Temp 97.5; Pulse Ox 97% on R/A; Weight 92.99 kg / nn1 205.01 lbs; Height 5 ft. 10 in. (177.80 cm); Pain 7/10; 08:05 BP 137 / 78; Pulse 77; Resp 18; Pulse Ox 99% on R/A; Pain 7/10; jjr 12:08 BP 138 / 98 RA Supine (man/lg); Pulse 78; Resp 18; Pulse Ox 99% on R/A; Pain 7/10; jjr 15:41 BP 145 / 103; Pulse 99; Resp 18; Temp 98.1(O); Pulse Ox 100% on R/A; Pain 6/10; jjr 05:12 Body Mass Index 29.41 (92.99 kg, 177.80 cm) nn1 MDM: 05:55 UA Ordered. EDMS 05:55 Urine Culture Ordered. EDMS 05:55 GC & Chlamydia Amplification Ordered. EDMS 07:06 IV Saline Lock ordered. br1 07:06 Undress patient ordered. br1 07:07 morphine 4 mg IVP once ordered. br1 07:07 Ondansetron 4 mg IVP once ordered. br1 07:07 NS 0.9% 1000 ml IV at 150 mL/hr continuous ordered. br1 07:07 CBC with Diff Ordered. EDMS 07:07 BMP Ordered. EDMS 07:07 Liver Profile Ordered. EDMS 07:07 Lipase Ordered. EDMS 07:08 Scrotal, US Ordered. EDMS 07:08 CT ABD & PELVIS: IV Contrast Only Ordered. EDMS 07:32 DUPLEX SCAN LIMITED (DOPPLER) Ordered. EDMS 08:11 UA Reviewed. br1 08:11 CBC with Diff Reviewed. br1 08:11 Liver Profile Reviewed. br1 08:11 BMP Reviewed. br1 08:11 Lipase Reviewed. br1 08:15 Financial registration complete. lg 09:37 [facility] Sharepoint Consultant Order ordered. br1 10:14 URETHROCYSTOGRAPHY RETRO (RUG) Ordered. EDMS 10:19 [facility] Sharepoint Consultant Order complete. lbd 11:14 [facility] [place] Agreement was scanned into [employer] and attached to record. lg 13:49 morphine 4 mg IVP once ordered. br1 15:07 cefTRIAXone 250 mg IM once ordered. br1 15:07 Doxycycline 100 mg PO once ordered. br1 10/23 10:40 T-Sheet-- Draft Copy was scanned into [employer] and attached to record. gb 10:40 Radiology Report was scanned into [employer] and attached to record. gb Administered Medications: 10/22 07:39 Drug: morphine 4 mg [morphine 4 mg/mL intravenous cartridge (1 mL)] Route: IVP; Site: jjr left antecubital; 08:05 Follow up: BP 137 / 78; Pulse 77 bpm; Resp 18 bpm; Pulse Ox 99% RA; Pain 04/11 Adult jjr 07:39 Drug: Ondansetron 4 mg [ondansetron HCl 2 mg/mL intravenous solution (2 mL)] Route: jjr IVP; Site: left antecubital; 07:39 Drug: NS 0.9% 1000 ml [sodium chloride 0.9 % intravenous solution] Route: IV; Rate: 150 jjr mL/hr; Site: left antecubital; 15:44 Follow up: IV Status: Completed infusion; IV Intake: 1000ml jjr 14:08 Drug: morphine 4 mg [morphine 4 mg/mL intravenous cartridge (1 mL)] Route: IVP; Site: jjr left antecubital; 15:24 Drug: cefTRIAXone 250 mg [ceftriaxone 250 mg solution for injection (250 mg)] Route: jjr IM; Site: right gluteus; 15:24 Drug: Doxycycline 100 mg [doxycycline hyclate 100 mg tablet (1 tabs)] Route: PO; jjr Signatures: Dispatcher MedHost EDMS Sheba Méndez, [facility] lbd Smita Day, Reg Reg gb Alex Philip, Reg Reg lg Ervin Ahmadi MD MD br1 Betina Aparicio RN RN jPage LaresRN RN nn1 The chart was reviewed and I authenticate all verbal orders and agree with the evaluation and treatment provided.Corrections: (The following items were deleted from the chart) 11:48 10:41 [facility] Voiding Cystourethrogram ordered. EDMS EDMS Attachments: 11:14 [facility] Payment Agreement lg 10/23 10:40 T-Sheet-- Draft Copy gb Chart Complete MTDD
== END 2016-10-22 15:43 | disposition home or self-care (01) ==
LOC: M ED 05:02
DX: N45.1 Epididymitis (principal); R31.9 Hematuria, unspecified; R01.1 Cardiac murmur, unspecified; M54.30 Sciatica, unspecified side; Z91.030 Bee allergy status
CPT/HCPCS: 36415; 74177; 74455; 76870; 80048; 80076; 81001; 83690; 85025; 87086; 87491; 87591; 93976; 96361; 96372; 96374; 96375; 96376; 99284; J0696; J2405; Q9958; Q9967

== ENCOUNTER 2016-11-07 08:01 | Emergency (ER) | payer OTHER ==
[2016-11-07] MEDS ORDERED: KETOROLAC 30 MG/ML VIAL (J1885) As Ordered ONE (08:44)
--- NOTE | 2016-11-07 09:39 | EDDOCDS ---
Nurse's Notes [facility] Name: Prabhakar Maki Age: 21 yrs Sex: Male : 1995 Arrival Date: 11/07/2016 Time: 08:01 Bed I3 / M3 Private MD: No Pcp Diagnosis: Other chest pain-Musculoskeletal Chest Pain;Fall due to ice and snow Presentation: 11/07 08:05 Presenting complaint: Patient states: pain right side of body since fall against stairs kr3 last night. Reports pain right rib area and 'hurts to breath'. Adult Sepsis Screening: The patient does not have new or worsening altered mentation. Patient's respiratory rate is less than 22. Systolic blood pressure is greater than 100. Patient has a qSOFA score of 0- Negative Sepsis Screen. Suicide/Homicide risk assessment- the patient denies having any suicidal and/or homicidal ideations and does not present with any other emotional, behavioral or mental health complaints. 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 Transition of care: patient was not received from another setting of care. 08:05 Acuity: MARK Level 4 kr3 08:05 Method Of Arrival: Walkin/Carried/Asstd kr3 Triage Assessment: 08:06 General: Appears uncomfortable, Behavior is cooperative. Pain: Location: right arm and kr3 right rib area Pain currently is 8 out of 10 on a pain scale. Pt Declines HIV testing. Neurological: Level of Consciousness is awake, alert. Respiratory: Reports pain with respiration. Derm: Skin is normal. Musculoskeletal: Range of motion limited in right elbow. Historical: - Allergies: bee allergy; - Home Meds: 1. none - PMHx: Heart Murmur; Sciatica; - PSHx: none; - Social history: Smoking status: Patient states former smoker of tobacco. No barriers to communication noted, The patient speaks fluent Greenlandic, Speaks appropriately for age. - Family history: Not pertinent. - : The pt / caregiver states he / she is not on anticoagulants. Home medication list is obtained from the patient. - Exposure Risk Screening:: None identified. Screenin:09 Screening information is obtained from the patient. Fall risk: No risks identified. kr3 Assistance ADL's: requires no assistance with activities of daily living. Abuse/DV Screen: The patient / caregiver reports he/she is: not in a situation that causes fear, pain or injury. Nutritional screening: No deficits noted. Advance Directives: Currently, there is no health care proxy. home support is adequate. Assessment: 08:48 General: Appears in no apparent distress, comfortable, Behavior is appropriate for age, js13 cooperative. Pain: Pain currently is 4 out of 10 on a pain scale. Neurological: Level of Consciousness is awake, alert. Respiratory: Airway is patent Respiratory effort is even, unlabored, Respiratory pattern is regular, symmetrical. Derm: Skin is normal. 09:36 General: Appears in no apparent distress, comfortable, Behavior is appropriate for age, js13 cooperative. Pain: Pain currently is 3 out of 10 on a pain scale. Neurological: Level of Consciousness is awake, alert. Respiratory: Airway is patent Respiratory effort is even, unlabored, Respiratory pattern is regular, symmetrical. Derm: Skin is normal. Vital Signs: 08:06 BP 154 / 74; Pulse 80; Resp 16; Temp 97.6(T); Pulse Ox 98% on R/A; Weight 92.99 kg (R); kr3 Height 5 ft. 10 in. (177.80 cm) (R); 09:38 js13 09:38 Pain 3/10; js13 08:06 Body Mass Index 29.41 (92.99 kg, 177.80 cm) kr3 09:38 Patient declined discharge VS js13 Vitals: 08:06 Log In Time: November 07, 2016 at 08:01. kr3 ED Course: 08:03 Patient visited by Milton Jackson Reg. mpb 08:03 Patient moved to Waiting mpb 08:04 No Pcp is Private Physician. mpb 08:05 Triage Initiated kr3 08:09 Patient moved to I3 / M3 kr3 08:13 Pt greeted and oriented to ED. Patient advised of names of staff involved in care, jam1 location of call granados, wait times and NPO status. Patient has correct armband on for positive identification. Bed in low position. Call light in reach. Side rails up X 1. Door closed. 08:16 Treva Ibarra PA-C is PHCP. ef1 08:16 Kiara Barlow MD is Attending Physician. ef1 08:16 Patient visited by Treva Ibarra PA-C. ef1 08:46 Patient visited by Treva Ibarra PA-C. ef1 08:48 [facility] Payment Agreement was scanned into [employer] and attached to record. lg 08:48 The patient / caregiver is instructed regarding the plan of care and ED course. js13 08:48 No IV's were initiated during this patient's visit. No procedures done that require js13 assistance. 08:49 Patient visited by Virginia Bey RN. js13 09:19 Patient visited by Treva Ibarra PA-C. ef1 09:23 Kortney Villanueva [facility] is Referral Physician. ef1 Administered Medications: 09:06 Drug: ketorolac 60 mg [ketorolac 30 mg/mL (1 mL) injection solution (2 mL)] Route: IM; js13 Site: right deltoid; 09:38 Follow up: Pain 10 Adult; Response: Pain is decreased js13 Order Results: There are currently no results for this order. Outcome: 09:23 Discharge ordered by Provider. ef1 09:36 Discharge Assessment: Patient awake, alert and oriented x 3. No cognitive and/or js13 functional deficits noted. Patient verbalized understanding of disposition instructions. patient administered narcotics - no. The following High Risk Discharge criteria are identified: None. Discharged to home ambulatory. Condition: stable. Discharge instructions given to patient, Instructed on discharge instructions, follow up and referral plans. medication usage, Demonstrated understanding of instructions, medications, Pt was receptive of discharge instructions/ teaching. Prescriptions given X 3. No special radiology studies were completed. Property :Personal belongings accompany Pt. 09:38 Patient left the ED. js13 Signatures: Siri Gaffney, SPINNING MULE OPERATOR SPINNING MULE OPERATOR jam1 Alex Philip, Reg Reg lg Sharlene Joyner,RN RN kr3 Treva Ibarra PA-C PA-C ef1 Virginia Bey,RN RN js13 Milton Jackson, Reg Reg mpb MTDD
--- NOTE | 2016-11-07 09:39 | EDDOCDS ---
Physician Documentation [facility] Name: Prabhakar Maki Age: 21 yrs Sex: Male : 1995 Arrival Date: 11/07/2016 Time: 08:01 Bed I3 / M3 Private MD: No Pcp Disposition: 11/07/16 09:23 Discharged to Home/Self Care. Impression: Other chest pain - Musculoskeletal Chest Pain, Fall due to ice and snow. - Condition is Stable. - Discharge Instructions: Musculoskeletal Pain. - Prescriptions for Naprosyn 500 mg Oral Tablet - take 1 tablet by ORAL route 2 times per day take with food; 30 tablet. Percocet 5- 325 mg Oral Tablet - take 1 tablet by ORAL route every 6 hours As needed MDD: 4 tabs; 10 tablet. Zanaflex 4 mg Oral Tablet - take 1 tablet by ORAL route At bedtime As needed Will cause drowsiness, do not take while driving/operating heavy machinery.; 20 tablet. - Medication Reconciliation, Local Pharmacy Hours form. - [facility]: [facility] [place]; When: 1 - 2 days; Reason: Recheck today's complaints, Continuance of care. Follow up: Emergency Department; Reason: Worsening of conditions. - Problem is new. - Symptoms have improved. Historical: - Allergies: bee allergy; - Home Meds: 1. none - PMHx: Heart Murmur; Sciatica; - PSHx: none; - Social history: Smoking status: Patient states former smoker of tobacco. No barriers to communication noted, The patient speaks fluent Pashto, Speaks appropriately for age. - Family history: Not pertinent. - : The pt / caregiver states he / she is not on anticoagulants. Home medication list is obtained from the patient. - Exposure Risk Screening:: None identified. Vital Signs: 11/07 08:06 BP 154 / 74; Pulse 80; Resp 16; Temp 97.6(T); Pulse Ox 98% on R/A; Weight 92.99 kg / kr3 205.01 lbs (R); Height 5 ft. 10 in. (177.80 cm) (R); 09:38 js13 09:38 Pain 3/10; js13 08:06 Body Mass Index 29.41 (92.99 kg, 177.80 cm) kr3 09:38 Patient declined discharge VS js13 MDM: 08:31 Financial registration complete. lg 08:40 Rib Unilat W/PA Chest Only Ordered. EDMS 08:41 ketorolac 60 mg IM once ordered. ef1 08:41 Ice Pack ordered. ef1 08:48 [facility] Payment Agreement was scanned into [employer] and attached to record. lg Administered Medications: 09:06 Drug: ketorolac 60 mg [ketorolac 30 mg/mL (1 mL) injection solution (2 mL)] Route: IM; js13 Site: right deltoid; 09:38 Follow up: Pain 12/10 Adult; Response: Pain is decreased js13 Signatures: Dispatcher MedHost EDMS Alex Philip, Reg Reg lg Sharlene Joyner,RN RN kr3 Treva Ibarra, PA-C PA-C ef1 Virginia Bey,RN RN js13 The chart was reviewed and I authenticate all verbal orders and agree with the evaluation and treatment provided.Attachments: 08:48 [facility] Payment Agreement lg MTDD
--- NOTE | 2016-11-07 09:59 | REP ---
RIGHT RIB SERIES: Five views including PA chest. HISTORY: Trauma. Comparison chest x-ray October 19, 2016. FINDINGS: PA chest radiograph is normal. There is no evidence of infiltrate, pneumothorax, or hydrothorax. Mediastinum is not widened. Heart size is normal. Multiple views of the right ribcage show no visible rib fracture. No bony destructive lesion is seen. IMPRESSION: Negative right rib series. Signed by Reji Ybarra MD 11/07/2016 11:02 A
--- NOTE | 2016-11-09 10:39 | EDDOCDS ---
Physician Documentation [facility] Name: Prabhakar Maki Age: 21 yrs Sex: Male : 1995 Arrival Date: 11/07/2016 Time: 08:01 Bed I3 / M3 Private MD: No Pcp Disposition: 11/07/16 09:23 Discharged to Home/Self Care. Impression: Other chest pain - Musculoskeletal Chest Pain, Fall due to ice and snow. - Condition is Stable. - Discharge Instructions: Musculoskeletal Pain. - Prescriptions for Naprosyn 500 mg Oral Tablet - take 1 tablet by ORAL route 2 times per day take with food; 30 tablet. Percocet 5- 325 mg Oral Tablet - take 1 tablet by ORAL route every 6 hours As needed MDD: 4 tabs; 10 tablet. Zanaflex 4 mg Oral Tablet - take 1 tablet by ORAL route At bedtime As needed Will cause drowsiness, do not take while driving/operating heavy machinery.; 20 tablet. - Medication Reconciliation, Local Pharmacy Hours form. - Follow up: [facility]; When: 1 - 2 days; Reason: Recheck today's complaints, Continuance of care. Follow up: Emergency Department; Reason: Worsening of conditions. - Problem is new. - Symptoms have improved. Historical: - Allergies: bee allergy; - Home Meds: 1. none - PMHx: Heart Murmur; Sciatica; - PSHx: none; - Social history: Smoking status: Patient states former smoker of tobacco. No barriers to communication noted, The patient speaks fluent Syriac, Speaks appropriately for age. - Family history: Not pertinent. - : The pt / caregiver states he / she is not on anticoagulants. Home medication list is obtained from the patient. - Exposure Risk Screening:: None identified. Vital Signs: 11/07 08:06 BP 154 / 74; Pulse 80; Resp 16; Temp 97.6(T); Pulse Ox 98% on R/A; Weight 92.99 kg / kr3 205.01 lbs (R); Height 5 ft. 10 in. (177.80 cm) (R); 09:38 js13 09:38 Pain 3/10; js13 08:06 Body Mass Index 29.41 (92.99 kg, 177.80 cm) kr3 09:38 Patient declined discharge VS js13 MDM: 08:31 Financial registration complete. lg 08:40 Rib Unilat W/PA Chest Only Ordered. EDMS 08:41 ketorolac 60 mg IM once ordered. ef1 08:41 Ice Pack ordered. ef1 08:48 [facility] [place] Payment Agreement was scanned into [employer] and attached to record. lg 14:05 T-Sheet-- Draft Copy was scanned into [employer] and attached to record. klr 14:30 Radiology Report was scanned into [employer] and attached to record. gb Administered Medications: 09:06 Drug: ketorolac 60 mg [ketorolac 30 mg/mL (1 mL) injection solution (2 mL)] Route: IM; js13 Site: right deltoid; 09:38 Follow up: Pain 12/10 Adult; Response: Pain is decreased js13 Signatures: Dispatcher [employer] EDMS Smita Day, Reg Reg gb Alex Philip, Reg Reg lg Sharlene Joyner,JAKY STARKEY kr3 Treva Ibarra, PA-C PA-C ef1 Virginia Bey,RN RN js13 Mary Dawson The chart was reviewed and I authenticate all verbal orders and agree with the evaluation and treatment provided.Attachments: 08:48 [facility] [place] Payment Agreement lg 14:05 T-Sheet-- Draft Copy klr Chart Complete MTDD
--- NOTE | 2016-11-09 10:39 | EDDOCDS ---
Nurse's Notes [facility] Name: Prabhakar Maki Age: 21 yrs Sex: Male : 1995 Arrival Date: 11/07/2016 Time: 08:01 Bed I3 / M3 Private MD: No Pcp Diagnosis: Other chest pain-Musculoskeletal Chest Pain;Fall due to ice and snow Presentation: 11/07 08:05 Presenting complaint: Patient states: pain right side of body since fall against stairs kr3 last night. Reports pain right rib area and 'hurts to breath'. Adult Sepsis Screening: The patient does not have new or worsening altered mentation. Patient's respiratory rate is less than 22. Systolic blood pressure is greater than 100. Patient has a qSOFA score of 0- Negative Sepsis Screen. Suicide/Homicide risk assessment- the patient denies having any suicidal and/or homicidal ideations and does not present with any other emotional, behavioral or mental health complaints. 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 Transition of care: patient was not received from another setting of care. 08:05 Acuity: MARK Level 4 kr3 08:05 Method Of Arrival: Walkin/Carried/Asstd kr3 Triage Assessment: 08:06 General: Appears uncomfortable, Behavior is cooperative. Pain: Location: right arm and kr3 right rib area Pain currently is 8 out of 10 on a pain scale. Pt Declines HIV testing. Neurological: Level of Consciousness is awake, alert. Respiratory: Reports pain with respiration. Derm: Skin is normal. Musculoskeletal: Range of motion limited in right elbow. Historical: - Allergies: bee allergy; - Home Meds: 1. none - PMHx: Heart Murmur; Sciatica; - PSHx: none; - Social history: Smoking status: Patient states former smoker of tobacco. No barriers to communication noted, The patient speaks fluent Bulgarian, Speaks appropriately for age. - Family history: Not pertinent. - : The pt / caregiver states he / she is not on anticoagulants. Home medication list is obtained from the patient. - Exposure Risk Screening:: None identified. Screenin:09 Screening information is obtained from the patient. Fall risk: No risks identified. kr3 Assistance ADL's: requires no assistance with activities of daily living. Abuse/DV Screen: The patient / caregiver reports he/she is: not in a situation that causes fear, pain or injury. Nutritional screening: No deficits noted. Advance Directives: Currently, there is no health care proxy. home support is adequate. Assessment: 08:48 General: Appears in no apparent distress, comfortable, Behavior is appropriate for age, js13 cooperative. Pain: Pain currently is 4 out of 10 on a pain scale. Neurological: Level of Consciousness is awake, alert. Respiratory: Airway is patent Respiratory effort is even, unlabored, Respiratory pattern is regular, symmetrical. Derm: Skin is normal. 09:36 General: Appears in no apparent distress, comfortable, Behavior is appropriate for age, js13 cooperative. Pain: Pain currently is 3 out of 10 on a pain scale. Neurological: Level of Consciousness is awake, alert. Respiratory: Airway is patent Respiratory effort is even, unlabored, Respiratory pattern is regular, symmetrical. Derm: Skin is normal. Vital Signs: 08:06 BP 154 / 74; Pulse 80; Resp 16; Temp 97.6(T); Pulse Ox 98% on R/A; Weight 92.99 kg (R); kr3 Height 5 ft. 10 in. (177.80 cm) (R); 09:38 js13 09:38 Pain 3/10; js13 08:06 Body Mass Index 29.41 (92.99 kg, 177.80 cm) kr3 09:38 Patient declined discharge VS js13 Vitals: 08:06 Log In Time: November 07, 2016 at 08:01. kr3 ED Course: 08:03 Patient visited by Milton Jackson Reg. mpb 08:03 Patient moved to Waiting mpb 08:04 No Pcp is Private Physician. mpb 08:05 Triage Initiated kr3 08:09 Patient moved to I3 / M3 kr3 08:13 Pt greeted and oriented to ED. Patient advised of names of staff involved in care, jam1 location of call granados, wait times and NPO status. Patient has correct armband on for positive identification. Bed in low position. Call light in reach. Side rails up X 1. Door closed. 08:16 Treva Ibarra PA-C is PHCP. ef1 08:16 Kiara Barlow MD is Attending Physician. ef1 08:16 Patient visited by Treva Ibarra PA-C. ef1 08:46 Patient visited by Treva Ibarra PA-C. ef1 08:48 [facility] Payment Agreement was scanned into [employer] and attached to record. lg 08:48 The patient / caregiver is instructed regarding the plan of care and ED course. js13 08:48 No IV's were initiated during this patient's visit. No procedures done that require js13 assistance. 08:49 Patient visited by Virginia Bey RN. js13 09:19 Patient visited by Treva Ibarra PA-C. ef1 09:23 Kortney Villanueva [facility] is Referral Physician. ef1 10:09 Rib Unilat W/PA Chest Only Returned. EDMS 14:05 T-Sheet-- Draft Copy was scanned into [employer] and attached to record. klr 14:30 Radiology Report was scanned into [employer] and attached to record. gb Administered Medications: 09:06 Drug: ketorolac 60 mg [ketorolac 30 mg/mL (1 mL) injection solution (2 mL)] Route: IM; js13 Site: right deltoid; 09:38 Follow up: Pain 10 Adult; Response: Pain is decreased js13 Order Results: Radiology Order: Rib Unilat W/PA Chest Only Test: Rib Unilat W/PA Chest Only REASON FOR EXAMINATION: Trauma; RIGHT RIB SERIES: Five views including PA chest.; ; HISTORY: Trauma.; ; Comparison chest x-ray October 19, 2016.; ; FINDINGS: PA chest radiograph is normal. There is no evidence of infiltrate,; pneumothorax, or hydrothorax. Mediastinum is not widened. Heart size is; normal.; ; Multiple views of the right ribcage show no visible rib fracture. No bony; destructive lesion is seen.; ; IMPRESSION:; ; Negative right rib series.; ; ; Signed by; Reji Ybarra MD 11/07/2016 11:02 A; Outcome: 09:23 Discharge ordered by Provider. ef1 09:36 Discharge Assessment: Patient awake, alert and oriented x 3. No cognitive and/or js13 functional deficits noted. Patient verbalized understanding of disposition instructions. patient administered narcotics - no. The following High Risk Discharge criteria are identified: None. Discharged to home ambulatory. Condition: stable. Discharge instructions given to patient, Instructed on discharge instructions, follow up and referral plans. medication usage, Demonstrated understanding of instructions, medications, Pt was receptive of discharge instructions/ teaching. Prescriptions given X 3. No special radiology studies were completed. Property :Personal belongings accompany Pt. 09:38 Patient left the ED. js13 Signatures: Dispatcher [employer] EDMS Siri Gaffney, HARDWARE PRESS OPERATOR HARDWARE PRESS OPERATOR jam1 Smita Day, Reg Reg gb Alex Philip, Reg Reg lg Sharlene Joyner,RN RN kr3 Treva Ibarra, PA-Tin PA-C Virginia AllenRN RN js13 Milton Jackson, Reg Reg mpb Mary Dawson Chart Complete MTDD
--- NOTE | 2016-11-09 10:39 | EDDOCDS ---
Physician Documentation [facility] Name: Prabhakar Maki Age: 21 yrs Sex: Male : 1995 Arrival Date: 11/07/2016 Time: 08:01 Bed I3 / M3 Private MD: No Pcp Disposition: 11/07/16 09:23 Discharged to Home/Self Care. Impression: Other chest pain - Musculoskeletal Chest Pain, Fall due to ice and snow. - Condition is Stable. - Discharge Instructions: Musculoskeletal Pain. - Prescriptions for Naprosyn 500 mg Oral Tablet - take 1 tablet by ORAL route 2 times per day take with food; 30 tablet. Percocet 5- 325 mg Oral Tablet - take 1 tablet by ORAL route every 6 hours As needed MDD: 4 tabs; 10 tablet. Zanaflex 4 mg Oral Tablet - take 1 tablet by ORAL route At bedtime As needed Will cause drowsiness, do not take while driving/operating heavy machinery.; 20 tablet. - Medication Reconciliation, Local Pharmacy Hours form. - Follow up: [facility] [place]; When: 1 - 2 days; Reason: Recheck today's complaints, Continuance of care. Follow up: Emergency Department; Reason: Worsening of conditions. - Problem is new. - Symptoms have improved. Historical: - Allergies: bee allergy; - Home Meds: 1. none - PMHx: Heart Murmur; Sciatica; - PSHx: none; - Social history: Smoking status: Patient states former smoker of tobacco. No barriers to communication noted, The patient speaks fluent Latvian, Speaks appropriately for age. - Family history: Not pertinent. - : The pt / caregiver states he / she is not on anticoagulants. Home medication list is obtained from the patient. - Exposure Risk Screening:: None identified. Vital Signs: 11/07 08:06 BP 154 / 74; Pulse 80; Resp 16; Temp 97.6(T); Pulse Ox 98% on R/A; Weight 92.99 kg / kr3 205.01 lbs (R); Height 5 ft. 10 in. (177.80 cm) (R); 09:38 js13 09:38 Pain 3/10; js13 08:06 Body Mass Index 29.41 (92.99 kg, 177.80 cm) kr3 09:38 Patient declined discharge VS js13 MDM: 08:31 Financial registration complete. lg 08:40 Rib Unilat W/PA Chest Only Ordered. EDMS 08:41 ketorolac 60 mg IM once ordered. ef1 08:41 Ice Pack ordered. ef1 08:48 [facility] Payment Agreement was scanned into [employer] and attached to record. lg 14:05 T-Sheet-- Draft Copy was scanned into [employer] and attached to record. klr 14:30 Radiology Report was scanned into [employer] and attached to record. gb Administered Medications: 09:06 Drug: ketorolac 60 mg [ketorolac 30 mg/mL (1 mL) injection solution (2 mL)] Route: IM; js13 Site: right deltoid; 09:38 Follow up: Pain 12/10 Adult; Response: Pain is decreased js13 Signatures: Dispatcher [employer] EDMS Smita Day, Reg Reg gb Alex Philip, Reg Reg lg Sharlene Joyner,JAKY STARKEY kr3 Treva Ibarra, PA-C PA-C ef1 Virginia Bey,RN RN js13 Mary Dawson The chart was reviewed and I authenticate all verbal orders and agree with the evaluation and treatment provided.Attachments: 08:48 [facility] Payment Agreement lg 14:05 T-Sheet-- Draft Copy klr Chart Complete MTDD
== END 2016-11-07 09:38 | disposition home or self-care (01) ==
LOC: M ED 08:01
DX: R07.89 Other chest pain (principal); W00.0XXA Fall on same level due to ice and snow, initial encounter; Y92.410 Unspecified street and highway as the place of occurrence of the external cause; Y93.89 Activity, other specified; Y99.8 Other external cause status; M54.30 Sciatica, unspecified side; R01.1 Cardiac murmur, unspecified; Z91.030 Bee allergy status
CPT/HCPCS: 71101; 96372; 99283; J1885